=== PATIENT | male | born 1950 | race Caucasian/White ===

== ENCOUNTER 2019-11-01 18:49 | Inpatient (IN) | payer MEDICARE, SELFPAY ==
[2019-11-01 18:56] VITALS: BP 151/89; PULSE 88; RESP 19; TEMP 36.3; O2SAT 95; BMI 24.3
--- NOTE | 2019-11-01 18:57 | ED_ITS ---
Entered by Gisele Munson, acting as scribe for KristenRamona Ab HPI - Altered Mental Status General: Chief Complaint: Altered Mental Status Stated Complaint: AMS, N/V, FACIAL DROOP Time Seen by Provider: 11/01/19 18:56 Source: patient, EMS and RN notes reviewed Mode of arrival: EMS Limitations: altered mental status History of Present Illness: HPI narrative: 69 yo male presents to ED with an altered mental status. 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 The spouse had checked on the patient 2 days ago and had to help him up at that time. She reported the patient had been vomiting the last 2 days. The patient states he has pain in upper back. He denies abdominal pain or other pain at this time. He said nothing alleviates nor worsens the pain. The patient states his mouth is extremely dry. MD complaint: altered mental status Onset (ago): day(s) (2) Timing confirmed by: spouse Severity: moderate Consistency of symptoms: Constant Context: unknown Associated symptoms: Reports other (vomiting) Treatments prior to arrival: oxygen Review of Systems General: Reports: other (negative unless marked) Const: Denies: fever, chills, body aches, fatigue, malaise or diaphoresis Eyes: Denies: change in vision or blurry vision ENMT: Denies: throat pain, painful swallowing, hoarseness, ear pain, ear discharge, Change in hearing or nasal discharge Card: Denies: chest pain, palpitations, irregular heart rhythm, syncope, pre- syncope, shortness of breath on exertion or shortness of breath when lying down Resp: Denies: non-productive cough, wheezing, coughing up blood or chest congestion GI: Denies: abdominal pain, vomiting blood, coffee grounds in vomit, diarrhea, constipation, cramping, blood in stool or black tarry stool : Denies: flank pain, difficulty urinating, painful urination, urinary frequency, urinary urgency, decreased urine ouput, urinary incontinence or blood in urine Musc: Denies: neck pain, back pain, extremity pain, extremity swelling, joint pain, joint swelling, joint warmth or joint stiffness Skin/Breast: Denies: rash, skin tenderness or yellow skin Neuro: Denies: headache, numbness in extremities, weakness in extremities, changes in sensation, lack of coordination, difficulty walking, dizziness, vertigo or confusion Endo: Denies: tired all the time, cold intolerance, excessive sweating, flushing or hot flashes Theodore/Lymph: Denies: easy bruising, easy bleeding, petechiae or enlarged lymph nodes All/Imm: Denies: hives, throat swelling, tongue swelling, facial swelling or acute wheezing PFSH ED PFSH: Social History Smoking and tobacco status: former smoker Physical Exam Const: COMMON NORMALS: no apparent distress, no limitations, healthy appearing and well nourished GENERAL APPEARANCE: cooperative, well kempt and well developed ORIENTATION/CONSCIOUSNESS: Yes awake HENMT: COMMON NORMALS: normocephalic, head/scalp atraumatic, hearing grossly normal bilaterally, external ears normal, EAC's normal and external nose normal HEAD & SCALP: normal to inspection, normocephalic and atraumatic FACE & SINUS: normal facial exam and face symmetric NOSE: external nose normal and nares normal EXTERNAL EAR: Yes external ears normal EXTERNAL AUDITORY CANAL: EAC's normal MOUTH: tongue normal Eye: COMMON NORMALS: PERRL, EOMs intact bilaterally, conjunctivae normal and no scleral icterus GENERAL EYE: normal appearance of both eyes and normal light reflex CONJUNCTIVA: Yes conjunctivae normal SCLERA: sclerae normal CORNEA: Yes corneas normal PUPIL: Yes PERRL DIRECT OPHTHALMOSCOPY: Yes normal light reflex Neck/C-Spine: COMMON NORMALS: full ROM, no lymphadenopathy, supple, no meningeal signs and no JVD GENERAL: Yes normal visual inspection and Yes trachea midline CERVICAL SPINE: Yes cervical ROM normal Chest: COMMONS NORMALS: inspection of chest normal and palpation of chest normal Resp: COMMON NORMALS: no retractions EFFORT & INSPECTION: Yes able to speak in complete sentences AUSCULTATION: rhonchi throughout and wheezes throughout Cardio: COMMON NORMALS: no JVD, regular rate, regular rhythm, S1 normal heart sound, S2 normal heart sound, no gallops, no clicks, no murmurs and no rub JUGULAR VENOUS DISTENTION: no JVD RATE: regular rate RHYTHM: regular rhythm HEART SOUNDS: S1 normal and S2 normal GI: COMMON NORMALS: soft to palpation, non-tender, no hepatosplenomegaly and no masses INSPECTION: Yes normal to inspection PALPATION: Yes soft and Yes no hepatosplenomegaly : COMMON NORMALS: Yes no CVA tenderness BLADDER/KIDNEY EXAM: Yes no CVA tenderness Back/Pelvis: COMMON NORMALS: no CVA tenderness, thoracic and lumbar spine normal to inspection, no thoracic nor lumbar tenderness and thoraco-lumbar ROM normal Extremity: COMMON NORMALS: normal to inspection, full ROM, normal capillary refill, no joint enlargement, no clubbing, cyanosis or edema and no calf tenderness Neuro: COMMON NORMALS: CN's II-XII intact bilaterally, moves all extremities, no focal motor deficits and no sensory deficits noted MENINGEAL SIGNS: Yes no meningeal signs Psych: COMMON NORMALS: mental status grossly normal, thought process normal, cooperative, affect normal, speech normal and activity/motor behavior normal APPEARANCE: Yes well kempt SPEECH: Yes normal speech THOUGHT PROCESS: normal thought process Skin: COMMON NORMALS: no rashes or lesions noted, skin turgor normal, no jaundice, no petechiae and no mottling GENERAL SKIN EXAM: no rashes or lesions noted and turgor normal Course Vital Signs: Vital signs: Vital Signs Temperature 97.4 F L 11/01/19 18:56 Pulse Rate 88 11/01/19 18:56 Respiratory Rate 19 H 11/01/19 18:56 Blood Pressure 151/89 11/01/19 18:56 Pulse Oximetry 95 11/01/19 18:56 MDM - Altered Mental Status MDM Narrative: Medical decision making narrative: The case was reviewed with Dr. Krishna. She agrees admit the patient for further monitoring for altered mental status and dehydration. Lab Data: Attestation: I reviewed the patient's lab results. Labs: Lab Results 11/01/19 11/01/19 11/01/19 Range/Units 18:33 18:33 18:33 WBC 9.9 (4.0-10.0) 10^3/ uL RBC 4.15 (4.1-5.3) 10^6/u L Hgb 12.6 (11.7-16.6) g/dL Hct 38.9 L (42.0-52.0) % MCV 93.7 (80-94) fL MCH 30.4 (28.0-34.0) pg MCHC 32.4 (30.0-36.0) g/dL RDW 12.9 (12.1-15.1) % Plt Count 287 (130-400) 10^3/c mm MPV 11.5 H (7.4-10.4) fL Neut % (Auto) 64.3 % Lymph % (Auto) 21.2 % [place] % (Auto) 11.6 % Eos % (Auto) 2.3 % Baso % (Auto) 0.2 % Neut # (Auto) 6.4 (1.8-7.7) 10^3/u L Lymph # (Auto) 2.1 (0.8-4.8) 10^3/u L [place] # (Auto) 1.2 H (0.2-0.9) 10^3/u L Eos # (Auto) 0.2 (0.0-0.8) 10^3/u L Baso # (Auto) 0.0 (0.0-0.1) 10^3/u L Nucleated RBC % (a uto) 0 % Nucleated RBCs # 0.0 /100WBC PT (10.5-13.3) SECO NDS INR (0.8-1.2) Specimen Type Sample Site ABG pH (7.35-7.45) ABG pCO2 (35-45) mmHg ABG pO2 (80.0-100.0) mmH g ABG HCO3 (22-26) mmol/L ABG Base Excess (-2.0-2.0) mmol/ L Emerson Test Hematocrit (42-52) % O2 Delivery Device Concaver ID Sodium 132 L (136-145) mmol/L Potassium 3.9 (3.5-5.1) mmol/L Chloride 92 L (98-107) mmol/L Carbon Dioxide 25 (22-29) mmol/L Anion Gap 18.9 (5-19) BUN 54 H (8-23) mg/dL Creatinine 1.8 H (0.7-1.2) mg/dL GFR Calculation 37.7 L (90-130) mL/min Glucose 285 H (65-115) mg/dL Calculated Osmolal ity 283 L (285-295) mOsm/k g Lactic Acid (0.5-2.2) mmol/L Calcium 10.5 (8.5-10.5) mg/dL Total Bilirubin 0.6 (0.15-1.2) mg/dL AST 45 H (0-40) U/L ALT 24 (0-41) U/L Alkaline Phosphata se 58 (40-130) IU/L Ammonia 19 (16-60) umol/L Troponin T Baselin e (0-15) ng/mL Troponin T 120 Min kaw (0-15) ng/mL Delta Troponin T (0-10) ABS# NT-Pro-B Natriuret Pep 245 H (0-125) pg/mL Total Protein 7.3 (6.6-8.7) g/dL Albumin 4.4 (3.5-5.2) g/dL Globulin 2.9 (1.3-4.6) g/dL Lipase 75 H (13-60) U/L Urine Color (Yellow) Urine Appearance (CLEAR) Urine pH (5-7) Ur Specific Gravit y (1.005-1.030) Urine Protein (Negative) Urine Glucose (UA) (Normal) Urine Ketones (Negative) Urine Blood (Negative) Urine Nitrate (Negative) Urine Bilirubin (NEGATIVE) Urine Urobilinogen (Negative) mg/dL Ur Leukocyte Janey ase (Negative) Urine RBC (0-2) /hpf Urine WBC (0-5) /hpf Ur Squamous Epith Cells (0-5) Urine Bacteria (NONE) Hyaline Casts Urine Yeast Urine Opiates Scre en (Negative) ng/mL Ur Barbiturates Sc reen (Negative) ng/mL Ur Phencyclidine S crn (Negative) ng/mL Ur Amphetamines Sc reen (Negative) ng/mL U Benzodiazepines Scrn (Negative) ng/mL Urine Cocaine Scre en (Negative) ng/mL U Marijuana (THC) Screen (Negative) ng/mL Ethyl Alcohol < 10 (0-10) mg/dL Influenza Type A A g (Negative) POC Influenza B Ag (Negative) 11/01/19 11/01/19 11/01/19 Range/Units 18:33 19:10 19:25 WBC (4.0-10.0) 10^3/ uL RBC (4.1-5.3) 10^6/u L Hgb (11.7-16.6) g/dL Hct (42.0-52.0) % MCV (80-94) fL MCH (28.0-34.0) pg MCHC (30.0-36.0) g/dL RDW (12.1-15.1) % Plt Count (130-400) 10^3/c mm MPV (7.4-10.4) fL Neut % (Auto) % Lymph % (Auto) % [place] % (Auto) % Eos % (Auto) % Baso % (Auto) % Neut # (Auto) (1.8-7.7) 10^3/u L Lymph # (Auto) (0.8-4.8) 10^3/u L [place] # (Auto) (0.2-0.9) 10^3/u L Eos # (Auto) (0.0-0.8) 10^3/u L Baso # (Auto) (0.0-0.1) 10^3/u L Nucleated RBC % (a uto) % Nucleated RBCs # /100WBC PT 13.90 H (10.5-13.3) SECO NDS INR 1.04 (0.8-1.2) Specimen Type Arterial Sample Site Radial, right ABG pH 7.37 (7.35-7.45) ABG pCO2 40.1 (35-45) mmHg ABG pO2 55.6 L (80.0-100.0) mmH g ABG HCO3 23.4 (22-26) mmol/L ABG Base Excess -1.7 (-2.0-2.0) mmol/ L Emerson Test Pos Hematocrit 39.4 L (42-52) % O2 Delivery Device Room air Concaver ID [email or web address] Sodium (136-145) mmol/L Potassium (3.5-5.1) mmol/L Chloride (98-107) mmol/L Carbon Dioxide (22-29) mmol/L Anion Gap (5-19) BUN (8-23) mg/dL Creatinine (0.7-1.2) mg/dL GFR Calculation (90-130) mL/min Glucose (65-115) mg/dL Calculated Osmolal ity (285-295) mOsm/k g Lactic Acid (0.5-2.2) mmol/L Calcium (8.5-10.5) mg/dL Total Bilirubin (0.15-1.2) mg/dL AST (0-40) U/L ALT (0-41) U/L Alkaline Phosphata se (40-130) IU/L Ammonia (16-60) umol/L Troponin T Baselin e (0-15) ng/mL Troponin T 120 Min kaw (0-15) ng/mL Delta Troponin T (0-10) ABS# NT-Pro-B Natriuret Pep (0-125) pg/mL Total Protein (6.6-8.7) g/dL Albumin (3.5-5.2) g/dL Globulin (1.3-4.6) g/dL Lipase (13-60) U/L Urine Color (Yellow) Urine Appearance (CLEAR) Urine pH (5-7) Ur Specific Gravit y (1.005-1.030) Urine Protein (Negative) Urine Glucose (UA) (Normal) Urine Ketones (Negative) Urine Blood (Negative) Urine Nitrate (Negative) Urine Bilirubin (NEGATIVE) Urine Urobilinogen (Negative) mg/dL Ur Leukocyte Janey ase (Negative) Urine RBC (0-2) /hpf Urine WBC (0-5) /hpf Ur Squamous Epith Cells (0-5) Urine Bacteria (NONE) Hyaline Casts Urine Yeast Urine Opiates Scre en (Negative) ng/mL Ur Barbiturates Sc reen (Negative) ng/mL Ur Phencyclidine S crn (Negative) ng/mL Ur Amphetamines Sc reen (Negative) ng/mL U Benzodiazepines Scrn (Negative) ng/mL Urine Cocaine Scre en (Negative) ng/mL U Marijuana (THC) Screen (Negative) ng/mL Ethyl Alcohol (0-10) mg/dL Influenza Type A A g Negative (Negative) POC Influenza B Ag Negative (Negative) 11/01/19 11/01/19 11/01/19 Range/Units 19:37 20:45 20:50 WBC (4.0-10.0) 10^3/ uL RBC (4.1-5.3) 10^6/u L Hgb (11.7-16.6) g/dL Hct (42.0-52.0) % MCV (80-94) fL MCH (28.0-34.0) pg MCHC (30.0-36.0) g/dL RDW (12.1-15.1) % Plt Count (130-400) 10^3/c mm MPV (7.4-10.4) fL Neut % (Auto) % Lymph % (Auto) % [place] % (Auto) % Eos % (Auto) % Baso % (Auto) % Neut # (Auto) (1.8-7.7) 10^3/u L Lymph # (Auto) (0.8-4.8) 10^3/u L [place] # (Auto) (0.2-0.9) 10^3/u L Eos # (Auto) (0.0-0.8) 10^3/u L Baso # (Auto) (0.0-0.1) 10^3/u L Nucleated RBC % (a uto) % Nucleated RBCs # /100WBC PT (10.5-13.3) SECO NDS INR (0.8-1.2) Specimen Type Sample Site ABG pH (7.35-7.45) ABG pCO2 (35-45) mmHg ABG pO2 (80.0-100.0) mmH g ABG HCO3 (22-26) mmol/L ABG Base Excess (-2.0-2.0) mmol/ L Emerson Test Hematocrit (42-52) % O2 Delivery Device Concaver ID Sodium (136-145) mmol/L Potassium (3.5-5.1) mmol/L Chloride (98-107) mmol/L Carbon Dioxide (22-29) mmol/L Anion Gap (5-19) BUN (8-23) mg/dL Creatinine (0.7-1.2) mg/dL GFR Calculation (90-130) mL/min Glucose (65-115) mg/dL Calculated Osmolal ity (285-295) mOsm/k g Lactic Acid (0.5-2.2) mmol/L Calcium (8.5-10.5) mg/dL Total Bilirubin (0.15-1.2) mg/dL AST (0-40) U/L ALT (0-41) U/L Alkaline Phosphata se (40-130) IU/L Ammonia (16-60) umol/L Troponin T Baselin e 57 H (0-15) ng/mL Troponin T 120 Min kaw 58.42 H (0-15) ng/mL Delta Troponin T 1.42 (0-10) ABS# NT-Pro-B Natriuret Pep (0-125) pg/mL Total Protein (6.6-8.7) g/dL Albumin (3.5-5.2) g/dL Globulin (1.3-4.6) g/dL Lipase (13-60) U/L Urine Color Yellow (Yellow) Urine Appearance Clear (CLEAR) Urine pH 5 (5-7) Ur Specific Gravit y 1.015 (1.005-1.030) Urine Protein Neg (Negative) Urine Glucose (UA) 4+ H (Normal) Urine Ketones Negative (Negative) Urine Blood Trace H (Negative) Urine Nitrate Negative (Negative) Urine Bilirubin Neg (NEGATIVE) Urine Urobilinogen Norm (Negative) mg/dL Ur Leukocyte Janey ase Negative (Negative) Urine RBC 0-4 H (0-2) /hpf Urine WBC None (0-5) /hpf Ur Squamous Epith Cells 0-4 H (0-5) Urine Bacteria Trace (NONE) Hyaline Casts 10-15 H Urine Yeast 1+ H Urine Opiates Scre en (Negative) ng/mL Ur Barbiturates Sc reen (Negative) ng/mL Ur Phencyclidine S crn (Negative) ng/mL Ur Amphetamines Sc reen (Negative) ng/mL U Benzodiazepines Scrn (Negative) ng/mL Urine Cocaine Scre en (Negative) ng/mL U Marijuana (THC) Screen (Negative) ng/mL Ethyl Alcohol (0-10) mg/dL Influenza Type A A g (Negative) POC Influenza B Ag (Negative) 11/01/19 11/01/19 Range/Units 20:50 21:20 WBC (4.0-10.0) 10^3/ uL RBC (4.1-5.3) 10^6/u L Hgb (11.7-16.6) g/dL Hct (42.0-52.0) % MCV (80-94) fL MCH (28.0-34.0) pg MCHC (30.0-36.0) g/dL RDW (12.1-15.1) % Plt Count (130-400) 10^3/c mm MPV (7.4-10.4) fL Neut % (Auto) % Lymph % (Auto) % [place] % (Auto) % Eos % (Auto) % Baso % (Auto) % Neut # (Auto) (1.8-7.7) 10^3/u L Lymph # (Auto) (0.8-4.8) 10^3/u L [place] # (Auto) (0.2-0.9) 10^3/u L Eos # (Auto) (0.0-0.8) 10^3/u L Baso # (Auto) (0.0-0.1) 10^3/u L Nucleated RBC % (a uto) % Nucleated RBCs # /100WBC PT (10.5-13.3) SECO NDS INR (0.8-1.2) Specimen Type Sample Site ABG pH (7.35-7.45) ABG pCO2 (35-45) mmHg ABG pO2 (80.0-100.0) mmH g ABG HCO3 (22-26) mmol/L ABG Base Excess (-2.0-2.0) mmol/ L Emerson Test Hematocrit (42-52) % O2 Delivery Device Concaver ID Sodium (136-145) mmol/L Potassium (3.5-5.1) mmol/L Chloride (98-107) mmol/L Carbon Dioxide (22-29) mmol/L Anion Gap (5-19) BUN (8-23) mg/dL Creatinine (0.7-1.2) mg/dL GFR Calculation (90-130) mL/min Glucose (65-115) mg/dL Calculated Osmolal ity (285-295) mOsm/k g Lactic Acid 1.2 (0.5-2.2) mmol/L Calcium (8.5-10.5) mg/dL Total Bilirubin (0.15-1.2) mg/dL AST (0-40) U/L ALT (0-41) U/L Alkaline Phosphata se (40-130) IU/L Ammonia (16-60) umol/L Troponin T Baselin e (0-15) ng/mL Troponin T 120 Min kaw (0-15) ng/mL Delta Troponin T (0-10) ABS# NT-Pro-B Natriuret Pep (0-125) pg/mL Total Protein (6.6-8.7) g/dL Albumin (3.5-5.2) g/dL Globulin (1.3-4.6) g/dL Lipase (13-60) U/L Urine Color (Yellow) Urine Appearance (CLEAR) Urine pH (5-7) Ur Specific Gravit y (1.005-1.030) Urine Protein (Negative) Urine Glucose (UA) (Normal) Urine Ketones (Negative) Urine Blood (Negative) Urine Nitrate (Negative) Urine Bilirubin (NEGATIVE) Urine Urobilinogen (Negative) mg/dL Ur Leukocyte Janey ase (Negative) Urine RBC (0-2) /hpf Urine WBC (0-5) /hpf Ur Squamous Epith Cells (0-5) Urine Bacteria (NONE) Hyaline Casts Urine Yeast Urine Opiates Scre en Positive H (Negative) ng/mL Ur Barbiturates Sc reen Negative (Negative) ng/mL Ur Phencyclidine S crn Negative (Negative) ng/mL Ur Amphetamines Sc reen Negative (Negative) ng/mL U Benzodiazepines Scrn Negative (Negative) ng/mL Urine Cocaine Scre en Negative (Negative) ng/mL U Marijuana (THC) Screen Negative (Negative) ng/mL Ethyl Alcohol (0-10) mg/dL Influenza Type A A g (Negative) POC Influenza B Ag (Negative) Imaging Data^: CXR: Radiologist's impression: [place] [address] XRay Report Signed Patient: Eze Kessler #: [id number] : 1Acct#:[id number] Age/Sex: 69 / MADM Date: 11/01/19 Loc: [facility]/Bed: Attending Dr: Ordering Provider/Ordering MD: Ramona Peterson DO Date of Service: 11/01/19 Procedure(s): XR chest 1V portable [id number] Accession Number(s): [id number] Report Number: [id number] PROCEDURE INFORMATION: Exam: XR Chest, 1 View Exam date and time: 11/01/2019 7:28 PM Age: 69 years old Clinical indication: Cough TECHNIQUE: Imaging protocol: XR of the chest Views: 1 view. COMPARISON: No relevant prior studies available. FINDINGS: Lungs: Unremarkable. No consolidation. Pleural space: There are small bilateral pleural effusions. No pneumothorax. Heart/Mediastinum: Unremarkable. No cardiomegaly. Bones/joints: There is postsurgical change in the lower cervical spine. XR/XR chest 1V portable [id number] IMPRESSION: There are small bilateral pleural effusions. Dictated By:Cinthya Gonzalez MD Signed By:Cinthya Gonzalez MDSigned Date/Time:11/01/19 CT Head: Radiologist's impression: [address] [address] [address] Scan Report Signed Patient: Eze Kessler #: [id number] : 1Acct#:[id number] Age/Sex: 69 / MADM Date: 11/01/19 Loc: [facility]/Bed: Attending Dr: Ordering Provider/Ordering MD: Ramona Peterson DO Date of Service: 11/01/19 Procedure(s): CT head wo con* [id number] Accession Number(s): [id number] Report Number: [id number] PROCEDURE INFORMATION: Exam: CT Head Without Contrast Exam date and time: 11/01/2019 7:13 PM Age: 69 years old Clinical indication: Pain; Altered mental status/memory loss; Headache; Additional info: Eric/ams TECHNIQUE: Imaging protocol: Computed tomography of the head without contrast. Total DLP: 637.54 mGy-cm Radiation optimization: All CT scans at this facility use at least one of these dose optimization techniques: automated exposure control; mA and/or kV adjustment per patient size (includes targeted exams where dose is matched to clinical indication); or iterative reconstruction. COMPARISON: No relevant prior studies available. FINDINGS: Brain: Moderate white matter disease and volume loss are identified. There is no acute infarct or edema. No hemorrhage. Ventricles: Normal. No ventriculomegaly. Bones/joints: Unremarkable. No acute fracture. Sinuses: Visualized sinuses are unremarkable. No fluid levels. Mastoid air cells: Visualized mastoid air cells are well aerated. Soft tissues: Unremarkable. Other findings: This study is compromised by patient motion. CT/CT head wo con* [id number] IMPRESSION: There are no acute concerning abnormalities. Radiation Dose CTDIVOL = (mGy): DLP = 637.54 (mGy-cm) Dictated By:Cinthya Gonzalez MD Signed By:Cinthya Gonzalezigned Date/Time:11/01/19 Discharge Plan Discharge Patient Disposition: Admitted As Inpatient Clinical Impression: Altered mental status Condition: Stable Prescriptions: No Action metformin 500 mg Tablet 1,000 mg PO BID RF: 0 pravastatin 40 mg Tablet 80 mg PO BEDTIME RF: 0 glipizide 10 mg Tablet Extended Release 24hr 10 mg PO BID RF: 0 gabapentin 400 mg Capsule 400 mg PO TID RF: 0 [place] 10-325 mg Tablet See Rx Instructions .ROUTE .COMPLEX RF: 0 quinapril 40 mg Tablet 40 mg PO DAILY RF: 0 baclofen 10 mg Tablet 20 mg PO TID PRN (Reason: Pain) RF: 0 hydrochlorothiazide 25 mg Tablet 25 mg PO DAILY RF: 0 labetalol 300 mg Tablet 300 mg PO BID RF: 0 Januvia 100 mg Tablet 50 mg PO DAILY RF: 0 Prosvent Ultra Blend 1 tab PO BID RF: 0 Referrals: Kyleigh Barrera MD [Primary Care Provider] - Gómez Velasco MD [Family Provider] - Coding Level of Care Code ED Transitions Manager Rn for Chg Fwd Exam Comprehensive The documentation recorded by the Jeimy da silva Valerie R, accurately reflects the service I personally performed and the decisions made by Kristen ghotra Eli N Nov 01, 2019 18:49
[2019-11-01 19:15] VITALS: PULSE 90; RESP 18; O2SAT 93
[2019-11-01] MEDS: ipratropium-albuterol 3 mL Neb 9 ML INHALATION (19:15)
[2019-11-01] MEDS: sodium chloride 0.9% 1,000 ML 100 ML IV (19:21)
[2019-11-01 19:22] LABS: Basophils % 0.2 %; Eosinophils # 0.2 10^3/uL (0.0-0.8); Eosinophils % 2.3 %; Hematocrit 38.9 % (42.0-52.0); Hemoglobin 12.6 g/dL (11.7-16.6); Lymphocytes # 2.1 10^3/uL (0.8-4.8); Lymphocytes % 21.2 %; Mean Corpuscular HGB Conc 32.4 g/dL (30.0-36.0); Mean Corpuscular Hemoglobin 30.4 pg (28.0-34.0); Mean Corpuscular Volume 93.7 fL (80-94); Mean Platelet Volume 11.5 fL (7.4-10.4); Monocytes # 1.2 10^3/uL (0.2-0.9); Monocytes % 11.6 %; Neutrophils # 6.4 10^3/uL (1.8-7.7); Neutrophils % 64.3 %; Nucleated Red Blood Cells % 0 %; Platelet Count 287 10^3/cmm (130-400); Red Blood Count 4.15 10^6/uL (4.1-5.3); Red Cell Distribution Width 12.9 % (12.1-15.1); White Blood Count 9.9 10^3/uL (4.0-10.0)
[2019-11-01 19:30] VITALS: PULSE 94; RESP 20; O2SAT 94
[2019-11-01 19:40] LABS: INR 1.04 (0.8-1.2)
[2019-11-01 19:48] LABS: Influenza A by IFA Negative (Negative); Influenza B by IFA Negative (Negative)
[2019-11-01 19:56] LABS: Ammonia 19 umol/L (16-60)
[2019-11-01 20:07] LABS: Alanine Aminotransferase 24 U/L (0-41); Albumin Level 4.4 g/dL (3.5-5.2); Alkaline Phosphatase 58 IU/L (40-130); Anion Gap 18.9 (5-19); Aspartate Amino Transferase 45 U/L (0-40); Blood Urea Nitrogen 54 mg/dL (8-23); Calcium 10.5 mg/dL (8.5-10.5); Carbon Dioxide 25 mmol/L (22-29); Chloride 92 mmol/L (98-107); Creatinine Clr Calc Pharmacy 40.1984; Globulin 2.9 g/dL (1.3-4.6); Glomerular Filtration Rate 37.7 mL/min (90-130); Glucose 285 mg/dL (65-115); Lipase 75 U/L (13-60); NT Pro B Type Natriuretic Pept 245 pg/mL (0-125); Osmolality Calculated 283 mOsm/kg (285-295); Potassium 3.9 mmol/L (3.5-5.1); Sodium 132 mmol/L (136-145); Total Bilirubin 0.6 mg/dL (0.15-1.2); Total Protein 7.3 g/dL (6.6-8.7)
[2019-11-01 20:18] LABS: Troponin(5th) Baseline 57 ng/mL (0-15)
[2019-11-01 20:40] LABS: Alcohol Level < 10 mg/dL (0-10)
--- NOTE | 2019-11-01 21:00 | ECG_ITS ---
Measurements Intervals [place] Rate: 86 P: 52 MO: 140 QRS: -52 QRSD: 105 T: 78 QT: 371 QTc: 444 SINUS RHYTHM POSSIBLE LEFT ATRIAL ENLARGEMENT [-0.1mV P WAVE IN V1/V2] LEFT ANTERIOR FASCICULAR BLOCK [QRS AXIS <= -45, QR IN I, RS IN II] SEPTAL MYOCARDIAL INFARCTION , OF INDETERMINATE AGE [40+ ms Q WAVE IN V1/V2] No previous ECG available for comparison Electronically Signed On 11-02-2019 18:07:39 CDT by Desire Manuel M.D. [email or web address]
[2019-11-01 21:01] LABS: ABG PCO2 40.1 mmHg (35-45); ABG PH Result 7.37 (7.35-7.45); Arterial Blood Gas Hematocrit 39.4 % (42-52); Base Excess ABG -1.7 mmol/L (-2.0-2.0); Blood Gas Allen Test Pos; Blood Gas Sample Site Radial, right; Blood Gas Sample Type Arterial; HCO3 ABG 23.4 mmol/L (22-26); Oxygen Device ROOM AIR; PO2 ABG 55.6 mmHg (80.0-100.0)
[2019-11-01 21:12] LABS: Troponin 5 2HR 58.42 ng/mL (0-15); Troponin 5 2HR Delta 1.42 ABS# (0-10)
[2019-11-01 21:29] LABS: Amphetamines Screen Urine Negative (Negative); Barbiturates Screen Urine Negative (Negative); Benzodiazepines Screen Urine Negative (Negative); Cocaine Screen Urine Negative (Negative); Opiate Screen Urine Positive (Negative); PCP Screen Urine Negative (Negative); THC Screen Urine Negative (Negative)
[2019-11-01 21:37] LABS: Blood Urine Trace (Negative); Glucose Urine UA 4+ (Normal); Ketones Urine Negative (Negative); Nitrate Urine Negative (Negative); Protein Urine Neg (Negative); Specific Gravity, Urine 1.015 (1.005-1.030); Urine Appearance Clear (CLEAR); Urine Color Yellow (Yellow); pH Urine 5 (5-7)
[2019-11-01 21:38] LABS: Bilirubin Urine Neg (NEGATIVE); Leukocyte Esterase Urine Negative (Negative); Urobilinogen Urine Norm (Negative)
[2019-11-01 21:41] LABS: Add Urine Culture? Yes; Bacteria Urine TRACE; RBC Urine 0-4 /hpf (0-2); Squamous Epithelial Cell Urine 0-4 (0-5)
[2019-11-01 21:43] LABS: Lactic Sepsis W/Reflex 1.2 mmol/L (0.5-2.2)
[2019-11-01 23:15] VITALS: BP 175/91; PULSE 91; RESP 20; O2SAT 98
--- NOTE | 2019-11-01 23:20 | P.HP_ITS ---
Providers/Chief Complaint Admitting Physician: Silvia Adames MD Primary Care Provider: Kyleigh Barrera MD Chief Complaint: AMS, Recurrent Falls History of Present Illness Eze Kessler is a 69 year old male who presented to the emergency room via EMS. History is obtained from him and available ER records. He is not a very good historian. Patient's , from whom he is currently , called for the ambulance. She left him about 2 weeks ago because of what was described as combative behavior towards her related to the patient having dementia. He has been living alone since that time though she has gone to check on him periodically. At that time he had fallen down and she had to help him get back up. He has evidently been vomiting for a couple of days. Unclear if he has had any diarrhea. No report of any fevers though again he is not a reliable histor sheila. He states that his legs just keep going out on him. It is both legs. He has evidence of multiple falls with abrasions to both legs, arms as well as his head. Denies focal numbness or weakness otherwise. No reported speech problems. Does indicate occasional difficulty swallowing. No vision changes. Denies drinking any alcohol in more than 4 years. He does take pain medication and reports that something he has been prescribed recently has not been helping any. He cannot tell me who prescribes the medications but does know that his primary care provider is Dr. Barrera. He describes being on a pain pill, a muscle relaxer and gabapentin. He cannot tell me if he has continued to take his medications since his left or not. From his ramblings it sounds like he may have chosen to quit taking a pill because he did not think it was working but it is really hard to figure out. He denies any audio or visual hallucinations. He does know that what the year is, that he is at the hospital, that he is here because he has been falling down a lot and who the president is. At the same time he does not seem to know what to do with the remote control or how to use a urinal. Work-up in the emergency room revealed evidence of dehydration. He had an elevated BUN and creatinine. It was clinically apparent that he was not doing well taking care of himself. He is being admitted for further evaluation and treatment. Medication bottles were brought in with him. Patient's does not wish to have anything to do with him any further from what was passed on to me. Patient himself is complaining of pain but will not localize it. History below was obtained from patient but is not considered fully reliable. Review of Systems Const: Reports: body aches; Denies: fever, chills, change in appetite or change in sleep pattern Eyes: Denies: change in vision or blurry vision ENMT: Denies: throat pain or nasal discharge Card: Denies: chest pain, palpitations, edema, lightheadedness or syncope Resp: Denies: shortness of breath or productive cough GI: Reports: nausea, vomiting and difficulty swallowing; Denies: abdominal pain, vomiting blood, heartburn/indigestion, diarrhea, constipation, blood in stool or black tarry stool : Denies: difficulty urinating, painful urination or blood in urine Musc: Reports: neck pain, back pain, extremity pain, joint pain, muscle cramps and muscle weakness; Denies: redness or joint warmth Skin/Breast: Reports: sores (Particularly on legs from recurrent falls) Neuro: Reports: headache, weakness in extremities, difficulty walking, frequent falls, confusion (Patient denies but was reported by ) and behavioral changes (Patient denies but was reported by ); Denies: numbness in extremities, dizziness, slurred speech or involuntary movements Psych: Denies: depression, visual hallucinations or auditory hallucinations Endo: Denies: excessive urination or excessive thirst Theodore/Lymph: Denies: easy bruising or easy bleeding Medications/Allergies Home Medications Medication Instructions Recorded Confirmed Last Taken Type Prosvent Ultra Blend 1 tab PO BID 11/01/19 11/01/19 Unknown History baclofen 20 mg PO TID PRN 11/01/19 11/01/19 Unknown History gabapentin 400 mg PO TID 11/01/19 11/01/19 Unknown History glipizide 10 mg PO BID 11/01/19 11/01/19 Unknown History hydrochlorothiazide 25 mg PO DAILY 11/01/19 11/01/19 Unknown History hydrocodone-acetaminophen [Hasty] See Rx Instructions .ROUTE .COMPLEX 11/01/19 11/01/19 Unknown History labetalol 300 mg PO BID 11/01/19 11/01/19 Unknown History metformin 1,000 mg PO BID 11/01/19 11/01/19 Unknown History pravastatin 80 mg PO BEDTIME 11/01/19 11/01/19 Unknown History quinapril 40 mg PO DAILY 11/01/19 11/01/19 Unknown History sitagliptin [Januvia] 50 mg PO DAILY 11/01/19 11/01/19 Unknown History Allergies Allergy/AdvReac Type Severity Reaction Status Date / Time No Known Allergies Allergy Verified 11/01/19 19:03 PFSH Acute PFSH: Medical History (Updated 11/02/19 @ 04:14 by Siliva Adames MD) Chronic pain Baclofen, gabapentin, hydrocodone on 11/02 2019 Diabetes mellitus type 2, noninsulin dependent Chronically on glipizide, metformin and Januvia as of 11/02/2019 Hyperlipidemia Chronically on pravastatin as of 11/02/2019 Hypertension Chronically on hydrochlorothiazide, labetalol, quinapril as of 11/02/2019 Surgical History (Updated 11/02/19 @ 04:10 by Silvia Adames MD) No significant past surgical history None reported by patient on 11/02/2019 Family History (Updated 11/02/19 @ 04:11 by Silvia Adames MD) Unknown No significant family history none reported by patient Social History (Updated 11/02/19 @ 04:12 by Silvia Adames MD) Smoking and tobacco status: former smoker Alcohol intake: former Former alcohol use details: no alcohol in 4-5 years, unable to quantify prior use History of recent travel: No Vitals/I&O/Wt Last Vital Signs Temp 97.4 F L 11/01/19 18:56 Pulse 94 11/01/19 19:30 Resp 20 H 11/01/19 19:30 BP 151/89 11/01/19 18:56 Pulse Ox 94 11/01/19 19:30 Weight last 48 hrs Weight 74.843 kg Physical Exam Const: COMMON NORMALS: oriented x3 and alert; negative for healthy appearing GENERAL APPEARANCE: anxious, disheveled and frail appearing; no odor of alcohol detected HENMT: COMMON NORMALS: oral mucous membranes not moist HEAD & SCALP: not atraumatic (frontoparietal soft tissue swelling centrally about 5-6cm diameter, with thin scab. There is another area of loss of superficial layer of skin on the right frontal parietal area. No ecchymoses is noted. Area mildly tender.) FACE & SINUS: facial erythema and other (Patient may have a slight right- sided facial droop, not fully cooperative with evaluation of such) NOSE: external nose normal EXTERNAL EAR: Yes external ears normal MOUTH: tongue normal and other (Dry lips); no dysphonia and no drooling TEETH & GINGIVA: Yes poor dentition Eye: COMMON NORMALS: PERRL, EOMs intact bilaterally (Grossly), no scleral icterus and normal visual flanagan by confrontation EYELID: eyelids normal (Right upper eyelid looks a little edematous) CONJUNCTIVA: Yes conjunctiva abnormal positive bilateral conjunctival injection diffuse Neck/C-Spine: COMMON NORMALS: supple and no JVD GENERAL: Yes other (Sunken suprasternal notch) Chest: COMMONS NORMALS: inspection of chest normal and palpation of chest normal Resp: COMMON NORMALS: no use of accessory muscles and clear to auscultation bilaterally EFFORT & INSPECTION: Yes tachypneic Cardio: COMMON NORMALS: no murmurs, no rub and peripheral pulses 2+ throughout RATE: regular rate RHYTHM: regular rhythm GI: AUSCULTATION: Yes normoactive bowel sounds PALPATION: Yes soft, No tender and Yes no hepatosplenomegaly : COMMON NORMALS: Yes no CVA tenderness and Yes external exam normal Back/Pelvis: COMMON NORMALS: no thoracic nor lumbar tenderness GENERAL BACK: Yes tenderness (Patient does have some tenderness in the right scapular area but it is not consistently reproducible.) Extremity: COMMON NORMALS: no calf tenderness and no pedal edema NARRATIVE EXTREMITY EXAM: Both knees are erythematous and slightly warm to touch but there are abrasions bilaterally. Left knee is slightly boggy but not particularly tender at all. Both with good range of motion. Ankles, wrists, elbows and shoulders have normal range of motion. Neuro: COMMON NORMALS: moves all extremities SPEECH: speech normal GAIT: Yes unable to assess gait SENSORY EXAM: Yes extremities bilateral pin-prick: normal and light-touch: normal MOTOR EXAM: strength 5/5 throughout, no tremor noted, no asterixis and no fasciculations PLANTAR REFLEX: downgoing: bilateral OTHER: Patient is not fully cooperative with neurological exam. He can do simple tasks but more complex ones such as [id number] or heel-to- duran confuse him. Trying to evaluate cranial nerves specifically was not successful but grossly no abnormalities were noted beyond possibility of a slight right-sided facial droop. Psych: APPEARANCE: Yes unkempt ATTITUDE: Yes evasive ACTIVITY/MOTOR BEHAVIOR: Yes fidgeting and Yes avoids eye contact SPEECH: Yes pressured (When talking about his ) MOOD & AFFECT: Yes anxious and Yes irritable (Mildly) THOUGHT PROCESS: circumstantial, confused (When trying to answer general questions but able to answer orientation questions correctly with effort) and loose associations THOUGHT CONTENT: No hallucination(s) MEMORY/COGNITION: Yes other (Cognition is inconsistent with patient answering simple questions at times but not able to answer other questions) INSIGHT: limited JUDGEMENT: questionable Skin: NARRATIVE SKIN EXAM: Multiple abrasions on extensor surfaces of both lower extremities and to a lesser degree both upper extremities. He has abrasions to his frontal parietal area as noted above. Face is erythematous. He has a blackened great toenail on the left foot. Data : 11/01/19 18:33 11/01/19 18:33 Other Labs: Laboratory Tests 11/01/19 11/01/19 11/01/19 18:33 18:33 18:33 INR 1.04 ABG pH ABG pCO2 ABG pO2 ABG HCO3 O2 Delivery Device Lactic Acid Calcium 10.5 Total Bilirubin 0.6 AST 45 H ALT 24 Alkaline Phosphatase 58 Ammonia 19 Troponin I 6 Hour Troponin T Baseline Troponin T 120 Minute NT-Pro-B Natriuret Pep 245 H Total Protein 7.3 Albumin 4.4 Lipase 75 H Urine Color Urine Appearance Ur Specific [place] Urine Protein Urine Glucose (UA) Urine Ketones Urine Blood Urine Nitrate Ur Leukocyte Esterase Urine Opiates Screen Ethyl Alcohol < 10 Influenza Type A Ag POC Influenza B Ag 11/01/19 11/01/19 11/01/19 19:10 19:25 19:37 INR ABG pH 7.37 ABG pCO2 40.1 ABG pO2 55.6 L ABG HCO3 23.4 O2 Delivery Device Room air Lactic Acid Calcium Total Bilirubin AST ALT Alkaline Phosphatase Ammonia Troponin I 6 Hour Troponin T Baseline 57 H Troponin T 120 Minute NT-Pro-B Natriuret Pep Total Protein Albumin Lipase Urine Color Urine Appearance Ur Specific [place] Urine Protein Urine Glucose (UA) Urine Ketones Urine Blood Urine Nitrate Ur Leukocyte Esterase Urine Opiates Screen Ethyl Alcohol Influenza Type A Ag Negative POC Influenza B Ag Negative 11/01/19 11/01/19 11/01/19 20:45 20:50 20:50 INR ABG pH ABG pCO2 ABG pO2 ABG HCO3 O2 Delivery Device Lactic Acid Calcium Total Bilirubin AST ALT Alkaline Phosphatase Ammonia Troponin I 6 Hour Troponin T Baseline Troponin T 120 Minute 58.42 H NT-Pro-B Natriuret Pep Total Protein Albumin Lipase Urine Color Yellow Urine Appearance Clear Ur Specific [place] 1.015 Urine Protein Neg Urine Glucose (UA) 4+ H Urine Ketones Negative Urine Blood Trace H Urine Nitrate Negative Ur Leukocyte Esterase Negative Urine Opiates Screen Positive H Ethyl Alcohol Influenza Type A Ag POC Influenza B Ag 11/01/19 11/02/19 21:20 00:50 INR ABG pH ABG pCO2 ABG pO2 ABG HCO3 O2 Delivery Device Lactic Acid 1.2 Calcium Total Bilirubin AST ALT Alkaline Phosphatase Ammonia Troponin I 6 Hour 48.01 H Troponin T Baseline Troponin T 120 Minute NT-Pro-B Natriuret Pep Total Protein Albumin Lipase Urine Color Urine Appearance Ur Specific [place] Urine Protein Urine Glucose (UA) Urine Ketones Urine Blood Urine Nitrate Ur Leukocyte Esterase Urine Opiates Screen Ethyl Alcohol Influenza Type A Ag POC Influenza B Ag Micro: Microbiology 11/01/19 18:24 Blood Culture - Preliminary Blood SPECIMEN COLLECTED 11/01/19 18:33 Blood Culture - Preliminary Blood SPECIMEN COLLECTED CXR: Radiologist's impression: FINDINGS: Lungs: Unremarkable. No consolidation. Pleural space: There are small bilateral pleural effusions. No pneumothorax. Heart/Mediastinum: Unremarkable. No cardiomegaly. Bones/joints: There is postsurgical change in the lower cervical spine. XR/XR chest 1V portable [id number] IMPRESSION: There are small bilateral pleural effusions. CT Head: Radiologist's impression: FINDINGS: Brain: Moderate white matter disease and volume loss are identified. There is no acute infarct or edema. No hemorrhage. Ventricles: Normal. No ventriculomegaly. Bones/joints: Unremarkable. No acute fracture. Sinuses: Visualized sinuses are unremarkable. No fluid levels. Mastoid air cells: Visualized mastoid air cells are well aerated. Soft tissues: Unremarkable. Other findings: This study is compromised by patient motion. CT/CT head wo con* [id number] IMPRESSION: There are no acute concerning abnormalities. EKG 1: I personally reviewed and interpreted this EKG as follows: My Interpretation: Sinus, nonspecific t wave changes, no st elevation Prior ECG tracings: not available for review A&P Assessment and plan (1) Acute renal failure: Status: Acute Qualifiers: Acute renal failure type: unspecified Qualified Code(s): N17.9 - Acute kidney failure, unspecified Code(s): N17.9 - Acute kidney failure, unspecified (2) Recurrent falls: Status: Acute Code(s): R29.6 - Repeated falls (3) Altered mental status: Status: Acute Qualifiers: Altered mental status type: unspecified Qualified Code(s): R41.82 - Altered mental status, unspecified Code(s): R41.82 - Altered mental status, unspecified (4) Diabetes mellitus type 2, noninsulin dependent: With hyperglycemia presently Status: Acute Code(s): E11.9 - Type 2 diabetes mellitus without complications (5) Chronic pain: Status: Acute Qualifiers: Chronic pain type: chronic pain syndrome Qualified Code(s): G89.4 - Chronic pain syndrome Code(s): G89.29 - Other chronic pain (6) Hypertension: Status: Acute Qualifiers: Hypertension type: essential hypertension Qualified Code(s): I10 - Essential (primary) hypertension Code(s): I10 - Essential (primary) hypertension (7) Hyperlipidemia: Status: Acute Qualifiers: Hyperlipidemia type: unspecified Qualified Code(s): E78.5 - Hyperlipidemia, unspecified Code(s): E78.5 - Hyperlipidemia, unspecified Additional A&P Information From the history provided, patient has had worsening behavior issues and been combative towards his lately. She has left him as of about 2 weeks ago because of what she described to the ED doctor as dementia . Since then he has not been able to care for himself. I am not sure if we are dealing with medication under or overuse but I do think that that is a possibility both from the standpoint of some of the medications he is on such as baclofen and hydrocodone as well as diabetic medications. He is oriented to person, place and to a lesser degree situation, but he does not appear to know how to use a urinal nor remote control for the TV. He does not understand the concept that his cannot be with him right now. I cannot discern if he has a history of alcohol use. He may have some degree of progressing dementia but difficult to know seeing him at one point in time. Delirium is certainly a possibility. He does have acute kidney injury/renal failure as indicated. Vomiting has been reported and may be the cause of this. Specific etiology for the vomiting is not clear to me and has not had any recurrence here that I have seen. Some of his medications, in the setting of acute renal failure could certainly alter his mental status. Lipase is slightly elevated, probably from the reported vomiting. Urine nitrites and leukocyte esterase are negative. Chest x-ray and CT of the head are unremarkable for acute changes though it was noted that he had some chronic decreased white matter and volume loss. I have no previous studies or labs for comparison. Acute cardiovascular event within the differential as is acute cerebrovascular event. Acute infectious etiology seems less likely to me but not out of around the possibility. Presently not certain exactly what is going on nor what his baseline is. Regardless he has clearly struggled to care for himself the last couple of weeks and has what appears to b e acute medical issues we can address. Inpatient admission IV fluids Monitor renal function Check CK level, serial cardiac enzymes, lipids, A1c, TSH, B12 and folate Hold statin therapy, DOM inhibitor, diuretic for the time being Continue labetalol Sliding scale insulin for diabetes Hold metformin and glipizide secondary to renal dysfunction, hold Januvia Resume a lower dose of baclofen and gabapentin as well as hydrocodone, monitoring mental status Serial neuro exams PT and OT and speech evaluation Check carotid ultrasound and echocardiogram Fall precautions One-to-one sitter in this patient with significant recurrent falls lately Case management to help discern social situation and disposition options Patient admits that he probably cannot take care of himself Request medical records from Dr. Holly Blount for DVT prophylaxis Supportive care otherwise Full code Attestations Medical Necessity Statement*: Anticipated stay greater than 2 midnights in a patient with multiple issues as noted above. The actual chronicity of some of these issues is unclear but patient has clear indications that he is struggling to care for himself the last couple of weeks with evidence of multiple falls. Need to evaluate for reversible and/or treatable cause of all of this. Plans are as indicated. 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
[2019-11-02] VITALS (9 sets, daily range): BP systolic 159–182; BP diastolic 70–88; PULSE 77–94; RESP 16–20; TEMP 36.4–37.2; O2SAT 94–100
[2019-11-02] MEDS: HYDROcodone-acetaminophen 10-325 mg Tablet 1 TAB PO ×3 (00:40→21:59)
[2019-11-02] MEDS: enoxaparin 40 mg/0.4 mL Syringe SUBCUT ×2 (00:45→22:02)
[2019-11-02 00:49] LABS: Glucose Point of Care 322 mg/dL (70-110)
[2019-11-02] MEDS: sodium chloride 0.9% 1,000 ML 999 ML IV (00:49)
--- NOTE | 2019-11-02 01:00 | ECG_ITS ---
Measurements Intervals Gladys Rate: 84 P: 52 LA: 144 QRS: -40 QRSD: 106 T: 80 QT: 376 QTc: 445 SINUS RHYTHM MARKED LEFT AXIS DEVIATION [QRS AXIS < -30] NONSPECIFIC T-WAVE ABNORMALITY No previous ECG available for comparison Electronically Signed On 11-02-2019 18:07:27 CDT by Desire Manuel M.D. [email or web address]
[2019-11-02 01:25] LABS: Troponin 5 6HR 48.01 ng/mL (0-15)
[2019-11-02] MEDS: sodium chloride 0.9% 1,000 ML 100 ML IV ×3 (01:53→22:00)
--- NOTE | 2019-11-02 04:54 | USCV_ITS ---
Eze Kessler Age: 69 Gender: M : 1950 Exam Date: 11/02/2019 13:55 Ordering Phys: Silvia Adames MD Technologist: Jen Rdz Exam Location: [facility] – [place] Indication: Recurrent falls Risk Factors: Unknown Previous Vascular Surgery: Unknown Right Brachial BP: / Left Brachial BP: / Right Left Velocity (cm/s) Spectral Plaque Velocity (cm/s) Spectral Plaque Syst/Diast Broadening Syst/Diast Broadening 105.80/18.70 Prox CCA 88.60 / 17.10 86.00/ 13.20 Mid CCA 88.60 / 14.00 66.20/ 17.60 Hetro Distal CCA 58.40 / 12.10 Hetro 79.20/ 16.20 Hetro Prox ICA 71.00 / 18.40 Hetro 88.60/ 23.30 Mid ICA 97.30 / 26.30 91.70/ 23.30 Distal ICA 73.60 / 26.30 152.90 ECA 352.10 Hetro 1.39 ICA/CCA 1.66 Not Vertebral Not Visualized Visualized / cm/s / cm/s Tri Subclavian Bi 118.1 107.8 0 0 FINDINGS Comparison: none available. Mild atherosclerosis at the bifurcations bilaterally without significant stenosis. Neither vertebral artery is identified. Moderate stenosis left subclavian atery. CONCLUSIONS Bilateral ICA stenosis less than 50%. Mild atherosclerosis at the bifurcations. Dr. Roxy Gallo DO (Electronically Signed) Final Date: 02 November 2019 15:23 S
--- NOTE | 2019-11-02 04:54 | USCV_ITS ---
Checo Eze Age: 69 Gender: M : 1950 Exam Date: 11/02/2019 14:19 Ordering Phys: Silvia Adames MD Technologist: Jen Rdz Exam Location: [facility] – [place] Indication: Recurrent falls, bilateral effusion on CXR, Elevated troponin BP: 176 / 79 HR: 92 Rhythm: Sinus Technical Quality: Adequate MEASUREMENTS (Male / Female) Normal Values 2D ECHO LV Diastolic Diameter PLAX 3.9 cm 4.2 - 5.9 / 3.9 - 5.3 cm LV Systolic Diameter PLAX 2.2 cm LV Chamber Size 4.1 cm IVS Diastolic Thickness 1.5 cm 0.6 - 1.0 / 0.6 - 0.9 cm IVS Systolic Thickness 1.9 cm LVPW Diastolic Thickness 1.4 cm 0.6 - 1.0 / 0.6 - 0.9 cm LVPW Systolic Thickness 1.8 cm RV Chamber Size 2.4 cm LVOT Diameter 2.0 cm LV Ejection Fraction 2D Teich 76.3 % LV Ejection Fraction MOD 2C 68.3 % LV Ejection Fraction 2C AL 67.8 % LA Diameter 4.4 cm LA Width 2.8 cm LA Height 4.6 cm RA Width 2.5 cm RA Height 4.2 cm Aorta at Sinotubular Diameter 2.8 cm M-MODE LV Diastolic Diameter MM 5.3 cm 4.2 - 5.9 / 3.9 - 5.3 cm LV Systolic Diameter MM 3.2 cm LV Ejection Fraction MM Teich 70.8 % IVS Diastolic Thickness MM 1.3 cm 0.6 - 1.0 / 0.6 - 0.9 cm IVS Systolic Thickness MM 1.3 cm LVPW Diastolic Thickness MM 1.3 cm 0.6 - 1.0 / 0.6 - 0.9 cm LVPW Systolic Thickness MM 1.7 cm RV Diastolic Diameter MM 1.6 cm Aortic Annulus Diameter 3.6 cm LA Ao Ratio MM 1.2 MV E Point Septal Separation 1.2 cm DOPPLER AV Peak Velocity 151.0 cm/s LVOT Peak Velocity 106.0 cm/s AV Area Cont Eq vti 2.9 cm squared AV Area Cont Eq pk 2.2 cm squared MV Area PHT 3.5 cm squared Mitral E to A Ratio 0.7 MV E' Velocity 8.0 cm/s Mitral E to MV E' Ratio 14.5 Mitral E to LV E' Lateral Ratio 12.0 Mitral E to LV E' Septal Ratio 18.6 TV Peak E Velocity 67.0 cm/s Right Atrial Pressure 3.0 mmHg PV Peak Velocity 98.0 cm/s RV Acceleration Time 0.1 s RV Ejection Time 0.2 s RV AcT/ET 0.5 FINDINGS Left Ventricle Normal left ventricular cavity size. Normal left ventricular systolic function. No regional wall motion abnormalities. Left ventricular ejection fraction is estimated at 65 %. Grade I/IV diastolic dysfunction (abnormal relaxation filling pattern), normal to mildly elevated filling pressures. Right Ventricle The right ventricle is normal in size and function. RVSP could not be calculated due to incomplete tricuspid regurgitation velocity profile. Right Atrium The right atrium is normal in size. Left Atrium The left atrium is normal in size. Mitral Valve Structurally normal mitral valve without significant stenosis or prolapse. There is no mitral regurgitation. Aortic Valve Structurally normal aortic valve without significant sclerosis or stenosis. There is no aortic regurgitation. Tricuspid Valve Structurally normal tricuspid valve without significant stenosis or regurgitation. Pulmonary artery systolic pressure is normal. Pulmonic Valve Structurally normal pulmonic valve without significant stenosis. There is no pulmonic regurgitation. Pericardium Normal pericardium without effusion. Aorta Normal ascending aorta dimension. CONCLUSIONS 1-Normal left ventricular cavity size. Normal left ventricular systolic function. No regional wall motion abnormalities. Left ventricular ejection fraction is estimated at 65 %. Grade I/IV diastolic dysfunction (abnormal relaxation filling pattern), normal to mildly elevated filling pressures. 2-There is no pericardial effusion. 3-No significant valve abnormalities. 4-Right atrial pressure is around 5 mm of mercury. 5-There are no prior echocardiogram studies to compare. Klaudia Vasques MD (Electronically Signed) Final Date: 02 November 2019 20:53 S
[2019-11-02 05:35] LABS: Basophils % 0.3 %; Eosinophils # 0.2 10^3/uL (0.0-0.8); Eosinophils % 2.2 %; Hematocrit 35.9 % (42.0-52.0); Hemoglobin 11.8 g/dL (11.7-16.6); Lymphocytes # 1.7 10^3/uL (0.8-4.8); Lymphocytes % 22.2 %; Mean Corpuscular HGB Conc 32.9 g/dL (30.0-36.0); Mean Corpuscular Hemoglobin 30.9 pg (28.0-34.0); Mean Platelet Volume 11.7 fL (7.4-10.4); Monocytes # 0.7 10^3/uL (0.2-0.9); Monocytes % 8.9 %; Nucleated Red Blood Cells % 0 %; Platelet Count 254 10^3/cmm (130-400); Red Blood Count 3.82 10^6/uL (4.1-5.3); Red Cell Distribution Width 12.8 % (12.1-15.1); White Blood Count 7.6 10^3/uL (4.0-10.0)
[2019-11-02 05:53] LABS: Anion Gap 19.6 (5-19); Blood Urea Nitrogen 33 mg/dL (8-23); Calcium 9.4 mg/dL (8.5-10.5); Carbon Dioxide 23 mmol/L (22-29); Chloride 101 mmol/L (98-107); Glomerular Filtration Rate 60.2 mL/min (90-130); Glucose 218 mg/dL (65-115); Osmolality Calculated 294 mOsm/kg (285-295); Potassium 3.6 mmol/L (3.5-5.1); Sodium 140 mmol/L (136-145)
[2019-11-02 06:01] LABS: Magnesium 2.2 mg/dL (1.7-2.3); Phosphorus 3.7 mg/dL (2.5-4.5)
[2019-11-02 06:10] LABS: Homocysteine 13.89
[2019-11-02 06:20] LABS: Estmated Average Glucose 298
[2019-11-02 06:23] LABS: Glucose Point of Care 239 mg/dL (70-110)
[2019-11-02 06:29] LABS: Chol HDL Ratio 4.38 mg/dL (1.0-5.00); Cholesterol 171 mg/dL (0-200); HDL Cholesterol 39 mg/dL (60-100); LDL Cholesterol Calculated 66 mg/dL (50-129); LDL HDL Ratio 1.69 RATIO (0.00-3.22); Thyroid Stimulating Hormone 0.31 uIU/mL (0.27-4.20); Triglycerides 328 mg/dL (0-150); Vitamin B12 271 pg/mL (232-1245)
[2019-11-02 06:40] LABS: Creatine Phosphokinase 899 U/L (39-308)
[2019-11-02] MEDS: gabapentin 100 mg Capsule 200 MG PO ×3 (08:55→22:02)
[2019-11-02] MEDS: folic acid 1 mg Tablet PO (08:55)
[2019-11-02] MEDS: labetalol 200 mg Tablet PO ×2 (08:55→18:34)
[2019-11-02] MEDS: thiamine 100 mg Tablet PO (08:55)
--- NOTE | 2019-11-02 10:39 | PC.NURSE ---
REPORT GIVEN TO ASHLEE WINKLER, PRIMARY CARE OF PATIENT TURNED OVER AT THIS TIME.
--- NOTE | 2019-11-02 11:10 | PC.CHAP ---
Pastoral Care Encounter/Spiritual Assessment Type of Contact [x] Declined patient access associate visit [] Patient/Family/Request visit [] Outpatient visit [] Follow-up visit [] Physician referral [] Code/Alert [] Routine visit [] Staff referral [] Actively dying [] Patient sleeping [] Family support [] [] Out of room [] Palliative care [] [] Receiving care in room [] Pre-surgical visit [] Trauma [] Long length of stay [] ICU visit [] Other: Relational/Emotional Strength [] Patient feels connected with others/family/visitors/staff [] Distress [] Loneliness/isolation [] Abandonment Spirituality of Patient [] Person of Shaylee [] Attends Baptism of their Shaylee [] Believes in Prayer [] Reads Bible or Anabaptist materials [] There are Spiritual issues to be addressed Manager Photo Interventions [] Prayer [] Active listening [] Non-anxious presence [] Spiritual/emotional support [] Crisis/trauma care [] Spiritual counseling [] Bereavement support [] Provided bereavement packet [] Provided Bible/devotional materials [] Provided toy/stuffed animal, coloring book to patient or family member [] Provided Communion [] Anointing/[place] [] Salvation [] Completed spiritual assessment [] Other: Impact on Illness or Injury [] Angry [] Fearful [] Anxious [] Often cries [] Exhaustion [] Unable to work [] Unable to attend religious [] Unable to walk/stand [] Unable to read [] Unable to drive [] Unable to eat/drink [] Unable to sleep [] Unable to be with family [] Patient intubated [] Other: Summary Time spent with patient
[2019-11-02 11:19] LABS: Glucose Point of Care 343 mg/dL (70-110)
--- NOTE | 2019-11-02 11:40 | P.PN_ITS ---
Subjective Subjective: Interval history: History and physical reviewed in its entirety. Patient denies any specific complaints now other than his back hurts some where he fell. Medications: Reviewed: Yes Vitals/I&O/Wt Last Vital Signs Temp 98.5 F 11/02/19 11:02 Pulse 90 11/02/19 11:02 Resp 18 11/02/19 11:02 BP 159/75 11/02/19 11:02 Pulse Ox 99 11/02/19 11:02 11/01/19 11/02/19 11/02/19 22:59 06:59 14:59 Intake Total / 240 / 240 Balance 2025. / 240 / 240 Weight last 48 hrs Weight 74.843 kg Physical Exam Narrative: EXAM NARRATIVE: General exam no apparent distress, conversive, alert and oriented x2. He was able to tell me the month, and year but was not sure what hospital this was. Cardiovascular regular rate and rhythm without murmur Lungs clear Abdomen is soft with positive bowel sounds Extremities no cyanosis clubbing. Trace edema present Neurologic: No obvious focal deficits Data : 11/02/19 04:52 11/02/19 04:52 Micro: Microbiology 11/01/19 18:24 Blood Culture - Preliminary Blood SPECIMEN COLLECTED 11/01/19 18:33 Blood Culture - Preliminary Blood SPECIMEN COLLECTED A&P Assessment and plan (1) Acute renal failure: Resolved Secondary to mild rhabdo continue fluids until tomorrow Status: Acute Qualifiers: Acute renal failure type: unspecified Qualified Code(s): N17.9 - Acute kidney failure, unspecified Code(s): N17.9 - Acute kidney failure, unspecified (2) Recurrent falls: Etiology uncertain. This could be related to his dementia, but cannot rule out medications playing a role as he is on many sedative medications. TSH, folate, B12 checked and normal Status: Acute Code(s): R29.6 - Repeated falls (3) Altered mental status: He is already been tested for TSH, B12, CT head and no reversible causes of dementia are noted. Certainly some of his confusion could be related to sedative medicines he is on as well. Likely has an element of dementia although delirium superimposed is possible Await echocardiogram, carotid duplex Status: Acute Qualifiers: Altered mental status type: unspecified Qualified Code(s): R41.82 - Altered mental status, unspecified Code(s): R41.82 - Altered mental status, unspecified (4) Diabetes mellitus type 2, noninsulin dependent: Very poor control with elevated hemoglobin A1c. Question his compliance. Initiate Lantus. Continue sliding scale. Status: Acute Code(s): E11.9 - Type 2 diabetes mellitus without complications (5) Chronic pain: Doses of baclofen, gabapentin, and hydrocodone have been reduced. If it is not apparent that he is using the baclofen I will discontinue this altogether and possibly continue to reduce doses as tolerated. Status: Acute Qualifiers: Chronic pain type: chronic pain syndrome Qualified Code(s): G89.4 - Chronic pain syndrome Code(s): G89.29 - Other chronic pain (6) Hypertension: Elevated. Add amlodipine 5 mg daily. Diuretics were discontinued secondary to renal failure. DOM inhibitor discontinued secondary to renal failure Status: Acute Qualifiers: Hypertension type: essential hypertension Qualified Code(s): I10 - Essential (primary) hypertension Code(s): I10 - Essential (primary) hypertension (7) Hyperlipidemia: Statin held secondary to elevation in CK. This can likely be restarted as this improves. Status: Acute Qualifiers: Hyperlipidemia type: unspecified Qualified Code(s): E78.5 - Hyperlipidemia, unspecified Code(s): E78.5 - Hyperlipidemia, unspecified Additional A&P Information Mild rhabdomyolysis. Continue fluids currently. He is significantly weak. At this point he appears to need intermediate facility placement. Discharge planning will evaluate. Continue physical therapy, Occupational Therapy Lovenox for DVT prophylaxis Full code Attestations Medical Necessity Statement*: Needs continued hospitalization, for evaluation of confusion, treatment of rhabdomyolysis, etc. 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
[2019-11-02] MEDS: amlodipine 5 mg Tablet PO (12:36)
[2019-11-02 17:03] LABS: Glucose Point of Care 218 mg/dL (70-110)
[2019-11-02 21:24] LABS: Glucose Point of Care 205 mg/dL (70-110)
[2019-11-02] MEDS: insulin glargine 100 units/1 mL 10 UNIT SUBCUT (22:00)
[2019-11-02] MEDS: famotidine 20 mg Tablet PO (22:02)
[2019-11-03 04:00] VITALS: BP 183/83; PULSE 83; RESP 17; TEMP 36.8; O2SAT 97
--- NOTE | 2019-11-03 04:32 | PC.NURSE ---
Nurse notified of BP.
[2019-11-03 06:15] LABS: Basophils % 0.3 %; Eosinophils # 0.1 10^3/uL (0.0-0.8); Eosinophils % 1.9 %; Hematocrit 37.3 % (42.0-52.0); Hemoglobin 11.9 g/dL (11.7-16.6); Lymphocytes # 1.4 10^3/uL (0.8-4.8); Mean Corpuscular HGB Conc 31.9 g/dL (30.0-36.0); Mean Corpuscular Hemoglobin 29.7 pg (28.0-34.0); Mean Platelet Volume 10.9 fL (7.4-10.4); Monocytes # 0.6 10^3/uL (0.2-0.9); Monocytes % 9.8 %; Neutrophils # 4.3 10^3/uL (1.8-7.7); Neutrophils % 66.5 %; Nucleated Red Blood Cells % 0 %; Platelet Count 282 10^3/cmm (130-400); Red Blood Count 4.01 10^6/uL (4.1-5.3); Red Cell Distribution Width 12.9 % (12.1-15.1); White Blood Count 6.4 10^3/uL (4.0-10.0)
[2019-11-03 06:35] LABS: Glucose Point of Care 175 mg/dL (70-110)
[2019-11-03 06:40] LABS: Alanine Aminotransferase 19 U/L (0-41); Albumin Level 3.6 g/dL (3.5-5.2); Alkaline Phosphatase 50 IU/L (40-130); Anion Gap 19.8 (5-19); Aspartate Amino Transferase 26 U/L (0-40); Blood Urea Nitrogen 15 mg/dL (8-23); Calcium 9.3 mg/dL (8.5-10.5); Carbon Dioxide 22 mmol/L (22-29); Chloride 102 mmol/L (98-107); Creatinine Clr Calc Pharmacy 90.4465; Globulin 2.5 g/dL (1.3-4.6); Glomerular Filtration Rate 96.1 mL/min (90-130); Glucose 184 mg/dL (65-115); Osmolality Calculated 291 mOsm/kg (285-295); Potassium 3.8 mmol/L (3.5-5.1); Sodium 140 mmol/L (136-145); Total Bilirubin 0.4 mg/dL (0.15-1.2); Total Protein 6.1 g/dL (6.6-8.7)
[2019-11-03 06:41] LABS: Creatine Phosphokinase 239 U/L (39-308)
[2019-11-03 07:25] VITALS: BP 188/86; PULSE 85; RESP 16; TEMP 36.7; O2SAT 96
[2019-11-03] MEDS: sodium chloride 0.9% 1,000 ML 100 ML IV (08:15)
[2019-11-03] MEDS: gabapentin 100 mg Capsule 200 MG PO ×3 (08:19→21:05)
[2019-11-03] MEDS: folic acid 1 mg Tablet PO (08:20)
[2019-11-03] MEDS: thiamine 100 mg Tablet PO (08:21)
[2019-11-03] MEDS: amlodipine 5 mg Tablet PO ×2 (08:21→10:29)
[2019-11-03] MEDS: labetalol 200 mg Tablet PO ×2 (08:21→17:42)
--- NOTE | 2019-11-03 10:42 | PM.PN ---
Subjective Subjective: Interval history: Eze reports he is doing okay, but weak. He reports a little bit of heartburn this morning. No nausea. Nursing alerts me that he likely does not need his one-on-one anymore. He is agreeable to going to a correction secondary to weakness, falls. Medications: Reviewed: Yes Vitals/I&O/Wt Last Vital Signs Temp 98.1 F 11/03/19 07:25 Pulse 85 11/03/19 07:25 Resp 16 11/03/19 07:25 BP 188/86 11/03/19 07:25 Pulse Ox 96 11/03/19 07:25 11/02/19 11/03/19 11/03/19 22:59 06:59 14:59 Intake Total 1423.333 / 2903.333 360 / 3263.333 1280 / 1280 Output Total Balance 1423.333 / 2903.333 360 / 3263.333 1279 / 1279 Weight last 48 hrs Weight 74.843 kg Physical Exam Narrative: EXAM NARRATIVE: General exam no apparent distress, conversive, alert and oriented x3. Cardiovascular regular rate and rhythm without murmur Lungs clear Abdomen is soft with positive bowel sounds Extremities no cyanosis clubbing. Trace edema present Neurologic: No obvious focal deficits Data : 11/03/19 06:06 11/03/19 06:06 Micro: Microbiology 11/01/19 18:24 Blood Culture - Preliminary Blood NEGATIVE TO DATE 11/01/19 18:33 Blood Culture - Preliminary Blood NEGATIVE TO DATE A&P Assessment and plan (1) Acute renal failure: Resolved Status: Acute Qualifiers: Acute renal failure type: unspecified Qualified Code(s): N17.9 - Acute kidney failure, unspecified Code(s): N17.9 - Acute kidney failure, unspecified (2) Recurrent falls: Etiology uncertain. This could be related to his dementia, but cannot rule out medications playing a role as he is on many sedative medications. TSH, folate, B12 checked and normal. He has improved some with reduction of sedative medicines. Status: Acute Code(s): R29.6 - Repeated falls (3) Altered mental status: He is already been tested for TSH, B12, CT head and no reversible causes of dementia are noted. Certainly some of his confusion could be related to sedative medicines he is on as well. Likely has an element of dementia although delirium superimposed is possible Echocardiogram preserved EF, 1/4 diastolic dysfunction and carotid duplex without clinically significant flow limitations Status: Acute Qualifiers: Altered mental status type: unspecified Qualified Code(s): R41.82 - Altered mental status, unspecified Code(s): R41.82 - Altered mental status, unspecified (4) Diabetes mellitus type 2, noninsulin dependent: Orally controlled. Continue Lantus and sliding scale. Increase Lantus today. Status: Acute Code(s): E11.9 - Type 2 diabetes mellitus without complications (5) Chronic pain: Doses of baclofen, gabapentin, and hydrocodone have been reduced. Discontinue baclofen completely. It does not appear that he is using this. Status: Acute Qualifiers: Chronic pain type: chronic pain syndrome Qualified Code(s): G89.4 - Chronic pain syndrome Code(s): G89.29 - Other chronic pain (6) Hypertension: Still significantly elevated. Increase Norvasc to 10 mg daily. Diuretics were discontinued secondary to renal failure. DOM inhibitor discontinued secondary to renal failure Status: Acute Qualifiers: Hypertension type: essential hypertension Qualified Code(s): I10 - Essential (primary) hypertension Code(s): I10 - Essential (primary) hypertension (7) Hyperlipidemia: Holding statin currently secondary to recent rhabdomyolysis Status: Acute Qualifiers: Hyperlipidemia type: unspecified Qualified Code(s): E78.5 - Hyperlipidemia, unspecified Code(s): E78.5 - Hyperlipidemia, unspecified Additional A&P Information Mild rhabdomyolysis. Resolved. Can decrease fluids. He is significantly weak, deconditioned. At this point he appears to need nursing home facility placement. Discharge planning will evaluate. 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
[2019-11-03 11:12] LABS: Glucose Point of Care 230 mg/dL (70-110)
[2019-11-03 11:14] VITALS: BP 168/74; PULSE 81; RESP 16; TEMP 36.7; O2SAT 97
[2019-11-03] MEDS: famotidine 20 mg Tablet PO ×2 (11:35→17:42)
[2019-11-03 15:39] VITALS: BP 163/75; PULSE 96; RESP 16; TEMP 36.7; O2SAT 97
[2019-11-03 17:27] LABS: Glucose Point of Care 231 mg/dL (70-110)
[2019-11-03 19:16] VITALS: BP 166/74; PULSE 86; RESP 18; TEMP 36.9; O2SAT 97
[2019-11-03 20:50] LABS: Glucose Point of Care 258 mg/dL (70-110)
[2019-11-03] MEDS: insulin glargine 100 units/1 mL 15 UNIT SUBCUT (21:05)
[2019-11-03] MEDS: enoxaparin 40 mg/0.4 mL Syringe SUBCUT (23:54)
[2019-11-04] VITALS: BP 158/78; PULSE 87; RESP 18; TEMP 36.9; O2SAT 96
[2019-11-04 04:00] VITALS: BP 163/86; PULSE 84; RESP 18; TEMP 36.8; O2SAT 95
[2019-11-04 06:41] LABS: Glucose Point of Care 211 mg/dL (70-110)
[2019-11-04 07:23] VITALS: BP 188/84; PULSE 82; RESP 16; TEMP 36.7; O2SAT 99
[2019-11-04] MEDS: folic acid 1 mg Tablet PO (08:16)
[2019-11-04] MEDS: gabapentin 100 mg Capsule 200 MG PO ×3 (08:16→20:59)
[2019-11-04] MEDS: famotidine 20 mg Tablet PO ×2 (08:17→17:01)
[2019-11-04] MEDS: amlodipine 10 mg Tablet PO (08:17)
[2019-11-04] MEDS: thiamine 100 mg Tablet PO (08:17)
[2019-11-04] MEDS: labetalol 200 mg Tablet PO ×2 (08:17→17:38)
[2019-11-04] MEDS: lisinopril 10 mg Tablet PO (10:31)
[2019-11-04] MEDS: calcium carbonate 500 mg Chew Tablet 1000 MG PO (10:40)
[2019-11-04 10:53] VITALS: BP 169/78; PULSE 76; RESP 18; TEMP 36.4; O2SAT 98
--- NOTE | 2019-11-04 11:00 | P.PN_ITS ---
Subjective Subjective: Interval history: Eze reports he is doing okay. He is wondering when he will transition to halfway facility for strengthening. He reports he is weak. Medications: Reviewed: Yes Vitals/I&O/Wt Last Vital Signs Temp 97.6 F 11/04/19 10:53 Pulse 76 11/04/19 10:53 Resp 18 11/04/19 10:53 BP 169/78 11/04/19 10:53 Pulse Ox 98 11/04/19 10:53 11/03/19 11/04/19 11/04/19 22:59 06:59 14:59 Intake Total 360 / 1880 Balance 360 / 1879 Physical Exam Narrative: EXAM NARRATIVE: General exam no apparent distress, conversive, alert and oriented x3. Cardiovascular regular rate and rhythm without murmur Lungs clear Abdomen is soft with positive bowel sounds Extremities no cyanosis clubbing. Trace edema present Neurologic: No obvious focal deficits Data : 11/03/19 06:06 11/03/19 06:06 Micro: Microbiology 11/01/19 20:50 Urine Culture - Final Urine,Clean Catch A&P Assessment and plan (1) Acute renal failure: Resolved Status: Acute Qualifiers: Acute renal failure type: unspecified Qualified Code(s): N17.9 - Acute kidney failure, unspecified Code(s): N17.9 - Acute kidney failure, unspecified (2) Recurrent falls: Etiology uncertain. This could be related to his dementia, but cannot rule out medications playing a role as he is on many sedative medications. TSH, folate, B12 checked and normal. Overall improvement with limiting sedating medications. Status: Acute Code(s): R29.6 - Repeated falls (3) Altered mental status: He is already been tested for TSH, B12, CT head and no reversible causes of dementia are noted. Certainly some of his confusion could be related to sedative medicines he is on as well. Likely has an element of dementia although delirium superimposed is possible Echocardiogram preserved EF, 1/4 diastolic dysfunction and carotid duplex without clinically significant flow limitations Status: Acute Qualifiers: Altered mental status type: unspecified Qualified Code(s): R41.82 - Altered mental status, unspecified Code(s): R41.82 - Altered mental status, unspecified (4) Diabetes mellitus type 2, noninsulin dependent: Orally controlled. Continue Lantus and sliding scale. Lantus has been increased. Blood sugars overall under improved control Status: Acute Code(s): E11.9 - Type 2 diabetes mellitus without complications (5) Chronic pain: Doses of baclofen, gabapentin, and hydrocodone have been reduced. Discontinue baclofen completely. It does not appear that he is using this. Status: Acute Qualifiers: Chronic pain type: chronic pain syndrome Qualified Code(s): G89.4 - Chronic pain syndrome Code(s): G89.29 - Other chronic pain (6) Hypertension: Norvasc added yesterday Lisinopril 10 mg added back today as renal function is normal Status: Acute Qualifiers: Hypertension type: essential hypertension Qualified Code(s): I10 - Essential (primary) hypertension Code(s): I10 - Essential (primary) hypertension (7) Hyperlipidemia: Holding statin currently secondary to recent rhabdomyolysis Status: Acute Qualifiers: Hyperlipidemia type: unspecified Qualified Code(s): E78.5 - Hyperlipidemia, unspecified Code(s): E78.5 - Hyperlipidemia, unspecified Additional A&P Information Mild rhabdomyolysis. Resolved. He is significantly weak, deconditioned. At this point he appears to need halfway facility placement. Discharge planning will evaluate. Continue physical therapy, Occupational Therapy Lovenox for DVT prophylaxis Full code Attestations Medical Necessity Statement*: Needs continued hospitalization, for adjustment of medications for blood pressure pending placement at halfway facility. 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
[2019-11-04 11:20] LABS: Glucose Point of Care 293 mg/dL (70-110)
[2019-11-04 15:02] VITALS: BP 165/80; PULSE 72; RESP 16; TEMP 36.5; O2SAT 98
[2019-11-04] MEDS: HYDROcodone-acetaminophen 10-325 mg Tablet 1 TAB PO ×2 (15:32→21:03)
[2019-11-04 17:15] LABS: Glucose Point of Care 198 mg/dL (70-110)
[2019-11-04 20:46] LABS: Glucose Point of Care 263 mg/dL (70-110)
[2019-11-04 21:00] VITALS: BP 191/78; PULSE 64; RESP 20; TEMP 36.7; O2SAT 97
[2019-11-04] MEDS: insulin glargine 100 units/1 mL 15 UNIT SUBCUT (21:00)
[2019-11-05] VITALS (43 sets, daily range): BP systolic 107–200; BP diastolic 49–113; PULSE 78–128; RESP 16–32; TEMP 36.4–36.5; O2SAT 93–99
--- NOTE | 2019-11-05 00:58 | PC.NURSE ---
Pt BP 195/96 manual. Received order for hydralazine and pt refusing to allow me to administer it. After spending much time with the pt trying to educate him on the benefits of taking the medication and the risks off not taking, pt continues to refuse and his anger is escalating the more staff tries.
--- NOTE | 2019-11-05 03:16 | PC.NURSE ---
Pt refusing to leave his telemetry on. States I cant get any sleep with this thing on. When explaining the purpose of it he pulls the leads off and states that has no issues that require it. Pt refuses to allow me to replace it at this time.
[2019-11-05] MEDS: haloperidol inj 5 mg/mL INJ 1 mL 2 MG IM ×2 (08:02→11:13)
[2019-11-05] MEDS: LORazepam 2 mg/mL INJ 1 mL 0.5 MG IVP (08:24)
--- NOTE | 2019-11-05 10:00 | PC.OT ---
OT tx attempted. Nursing requests OT tx to be withheld today as pt is displaying aggressive behaviors. Therapist to monitor pts status and try to resume services again tomorrow>
[2019-11-05] MEDS: haloperidol inj 5 mg/mL INJ 1 mL 1 MG IM (10:16)
[2019-11-05] MEDS: LORazepam 2 mg/mL INJ 1 mL 1 MG IM (10:38)
[2019-11-05] MEDS: LORazepam 2 mg/mL INJ 1 mL IM (10:54)
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
[2019-11-05] MEDS: haloperidol inj 5 mg/mL INJ 1 mL IM ×2 (13:29→16:47)
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
[2019-11-05] MEDS: ziprasidone 20 mg/mL SDV IM (14:23)
--- NOTE | 2019-11-05 15:12 | P.CONIM_ITS ---
Providers/Reason for Consult Consulting Physican/Specialty*: Zaki Echeverria MD. Psychiatry Reason for Consult*: Dementia with aggression and combativeness Attending Physician: Cesar Saini MD Primary Care Provider: Kyleigh Barrera MD Psych Consult HPI History of Present Illness Eze Kessler is a 69 year old male Eze presents today and is unable to truly participate in the interview process. At the time that I met him, he was in his bed, trying to get up, screaming, kicking, and things of that nature. At this point he has been given multiple milligrams of Haldol as well as much as 6 milligrams of Ativan. He does not seem to be relaxing or calming down, yelling, spitting, attempting to bite and things of this nature. As much as we can ascertain, he has not had psychiatric treatment in his life and apparently recently he has been having some memory problems and ultimately started being more and more at least verbally aggressive at home with his to where she reported she cannot handle it anymore, and he was brought to the hospital and she apparently may have left the home. Again, he has no contributory information at this time. PSYCHIATRIC HISTORY: As above. He reportedly has no psychiatric follow-up history, inpatient stays, etc. No psychosocial information outside of those things included by the primary team are available due to his level of dysfunction. Meds Current Medications: Current Medications Generic Name Dose Route Start Last Admin Trade Name Freq PRN Reason Stop Dose Admin Hydrocodone Bitart /Acetaminophen 1 tab 11/02/19 05:09 11/05/19 19:29 [place] 10-325 Mg PO 1 tab Q6H PRN Administration pain Amlodipine Besylat e 10 mg 11/04/19 09:00 11/05/19 10:19 Norvasc PO Not Given DAILY JOYCE Calcium Carbonate 1,000 mg 11/04/19 10:27 11/04/19 10:40 Tums PO 1,000 mg Q4H PRN Administration HEARTBURN Enoxaparin Sodium 40 mg 11/02/19 00:05 11/06/19 03:04 Lovenox SUBCUT Not Given Q24H JOYCE Famotidine 20 mg 11/03/19 11:00 11/05/19 19:29 Pepcid Tab PO 20 mg BID JOYCE Administration Folic Acid 1 mg 11/02/19 09:00 11/05/19 10:19 Folic Acid PO Not Given DAILY [facility] Gabapentin 200 mg 11/02/19 09:00 11/05/19 19:28 Neurontin PO 200 mg TID JOYCE Administration Haloperidol Lactat e 5 mg 11/05/19 13:24 11/05/19 13:29 Haldol Inj IM 5 mg Q6H PRN Administration AGITATION Hydralazine HCl 10 mg 11/05/19 09:53 11/05/19 16:02 Apresoline IVP 10 mg Q4H PRN Administration HYPERTENSION Insulin Aspart 0 unit 11/02/19 08:00 11/05/19 18:30 Novolog SUBCUT Not Given TIDWM [facility] Protocol Insulin Aspart 0 unit 11/02/19 00:05 11/05/19 21:16 Novolog SUBCUT 6 unit BEDTIME JOYCE Administration Protocol Insulin Glargine 15 unit 11/03/19 21:00 11/05/19 21:28 Lantus SUBCUT 15 unit BEDTIME JOYCE Administration Labetalol HCl 200 mg 11/02/19 09:00 11/05/19 19:28 Trandate PO 200 mg BID JOYCE Administration Lisinopril 10 mg 11/04/19 10:10 11/05/19 10:20 Prinivil PO Not Given DAILY [facility] Multivitamins/Mine rals 1 tab 11/02/19 09:00 11/05/19 07:34 Thera M Plus PO Not Given DAILY [facility] Thiamine Mononitra te 100 mg 11/02/19 09:00 11/05/19 10:20 Vitamin B-1 PO Not Given DAILY [facility] PFSH NPU PFSH: Medical History (Updated 11/06/19 @ 14:04 by Zaki Echeverria MD) Chronic pain Baclofen, gabapentin, hydrocodone on 11/02 2019 Diabetes mellitus type 2, noninsulin dependent Chronically on glipizide, metformin and Januvia as of 11/02/2019 Hyperlipidemia Chronically on pravastatin as of 11/02/2019 Hypertension Chronically on hydrochlorothiazide, labetalol, quinapril as of 11/02/2019 Surgical History (Updated 11/02/19 @ 04:10 by Silvia Adames MD) No significant past surgical history None reported by patient on 11/02/2019 Family History (Updated 11/02/19 @ 04:11 by Silvia Adames MD) Unknown No significant family history none reported by patient Social History (Updated 11/02/19 @ 04:12 by Silvia Adames MD) Smoking and tobacco status: former smoker Alcohol intake: former Former alcohol use details: no alcohol in 4-5 years, unable to quantify prior use History of recent travel: No Mental Status Exam MSE Comments: This is a well-nourished, well-developed, elderly, white male, with a diaper on and limited grooming, and no eye contact. No abnormal movements except for extreme psychomotor agitation. Uncooperative with exam in no moderate distress. Speech was occasional yelling, asking people to leave him alone, not touch him, and things of that nature. Mood not answered but affect aggressive. Thought process, disorganized. Thought content: patient did not respond to the questions directly, but was not expressing self-aggressive behavior, but was having outwardly directed aggression. He did not endorse any delusions, but he did appear to have persecutory and paranoid thinking. He did not appear to be attending to internal stimuli. He was alert and oriented to self. Attention and concentration were impaired, and memory was unreliable, but none were formally tested. He is alert and oriented to self. Insight and judgment are impaired. Impulse control is impaired Vitals/I&O/Wt Last Vital Signs Temp 97.7 F 11/05/19 08:00 Pulse 88 11/06/19 05:45 Resp 17 11/06/19 05:45 BP 182/88 11/06/19 05:45 Pulse Ox 97 11/06/19 04:15 11/05/19 11/05/19 11/06/19 14:59 22:59 06:59 Intake Total 222 / 222 222 / 444 Output Total 300 / 300 101 / 401 Balance -78 / -78 121 / 43 A&P Assessment and plan (1) Acute renal failure: This is a 69 year old, white male, who presents with acute aggression likely secondary to delirium with recent increase erection related to likely neurodegenerative disease/dementia, who presents not responding well to the current interventions to help him calm down. RECOMMENDATION AND PLAN: Continue current medication except: Discontinue benzodiazepines at this point. Initiate Haldol 5 mg po q 6 hours prn, max 15 mg in a 24-hour period. Will start Risperdal 0.5 mg po bid. Will return tomorrow to see if he is improving. Status: Acute Qualifiers: Acute renal failure type: unspecified Qualified Code(s): N17.9 - Acute kidney failure, unspecified Code(s): N17.9 - Acute kidney failure, unspecified (2) Recurrent falls: Status: Acute Code(s): R29.6 - Repeated falls (3) Diabetes mellitus type 2, noninsulin dependent: Status: Acute Code(s): E11.9 - Type 2 diabetes mellitus without complications (4) Chronic pain: Status: Acute Qualifiers: Chronic pain type: chronic pain syndrome Qualified Code(s): G89.4 - Chr onic pain syndrome Code(s): G89.29 - Other chronic pain (5) Hypertension: Status: Acute Qualifiers: Hypertension type: essential hypertension Qualified Code(s): I10 - Essential (primary) hypertension Code(s): I10 - Essential (primary) hypertension (6) Altered mental status: Status: Acute Qualifiers: Altered mental status type: unspecified Qualified Code(s): R41.82 - Altered mental status, unspecified Code(s): R41.82 - Altered mental status, unspecified (7) Hyperlipidemia: Status: Acute Qualifiers: Hyperlipidemia type: unspecified Qualified Code(s): E78.5 - Hyperlipidemia, unspecified Code(s): E78.5 - Hyperlipidemia, unspecified (8) Delirium: Status: Acute Code(s): R41.0 - Disorientation, unspecified (9) Dementia: Status: Acute Code(s): F03.90 - Unspecified dementia without behavioral disturbance Attestations NPU Medical Necessity Statement*: Inpatient hospitalization is medically necessary and the clinically appropriate intervention at this time. We will monitor medications and adjust if indicated. He will likely need two to four days of recovery time. Please refer to the primary team note for inpatient hospitalization. Coding Level of Care Code Acute Vault Cashier for [facility] Diagnoses Acute renal failure N17.9 Acute renal failure type: unspecified Recurrent falls R29.6 Diabetes mellitus type 2, noninsulin dependent E11.9 Chronic pain G89.4 Chronic pain type: chronic pain syndrome Hypertension I10 Hypertension type: essential hypertension Altered mental status R41.82 Altered mental status type: unspecified Hyperlipidemia E78.5 Hyperlipidemia type: unspecified Delirium R41.0 Dementia F03.90
--- NOTE | 2019-11-05 15:27 | PC.NURSE ---
AGGRESSIVE GEODON WAS GIVEN ORDERED. HE WAS VIOLENT AND AGGRESIVE PULLING AT CORDS AND SWINGING AT STAFF. FELL ASLEEP AT 1430 SLEEP CALMLY UNTIL 1520 BECAME COMBATIVE PULLING OFF PULSE OX AND HEART MONITOR AND VERBAL ABUSIVE AND SWINGING AT PATIENTS. CELIAW, SCRIPT SUPERVISOR
[2019-11-05] MEDS: morphine 4 mg/mL SDV 1 mL 1 MG IVP (15:41)
--- NOTE | 2019-11-05 15:41 | PC.NURSE ---
COMBATIVE pATIENT IS CONTINUING TO BE COMBATIVE, REMOVING TELE AND CONT. PULSE OX. PULLING AT IV, HITTING STAFF AND SCREAMING AND THREATENING STAFF. HE CONTINUES TO HIT WHEN STAFF IS CLOSE. GAVE [address] chiu. Asked if we could get patient sent to \icu for closer evaluation and physician states he is ok with patient being on floor. CELIAW, RESEARCH ASSOCIATE QUALITY CONTROL QC
[2019-11-05] MEDS: hyDRALAzine 20 mg/mL INJ 1 mL 10 MG IVP (16:02)
--- NOTE | 2019-11-05 16:17 | PC.NURSE ---
Patient is still combative and has continued to pull off all tele and pulse ox again. He had a BP of 200/102 and was treated with IV Hydralizine. He is continuing to kick myself and the staff at bedside. He is unsteady and very confused. He continues to state that if he had a shotgun he would take care of us all. Continuing to keep patient in the bed with 5 staff members present. No new orders. Dr. Saini and Dr. Echeverria notified. and no new orders. Gave meds as ordered on OCT. MIGUEL, LUCIANO
--- NOTE | 2019-11-05 16:37 | PC.NURSE ---
Physician is at bedside - Dr. Echeverria. Gave VO give 5mg of Haldol one time. CELIAW, VOICE NETWORK ADMINISTRATOR
--- NOTE | 2019-11-05 16:50 | ECG_ITS ---
Measurements Intervals Davis Rate: 120 P: 59 PA: 139 QRS: -69 QRSD: 95 T: 57 QT: 354 QTc: 501 SINUS TACHYCARDIA LEFT ANTERIOR FASCICULAR BLOCK [QRS AXIS <= -45, QR IN I, RS IN II] SEPTAL MYOCARDIAL INFARCTION [40+ ms Q WAVE IN V1/V2], PROBABLY OLD Compared to ECG 11/02/2019 01:10:23 Left anterior fascicular block now present Myocardial infarct finding now present Sinus rhythm no longer present Left-axis deviation no longer present T-wave abnormality no longer present Electronically Signed On 11-06-2019 18:21:17 CDT by Desire Manuel M.D. [email or web address]
[2019-11-05 17:09] LABS: Basophils % 0.3 %; Eosinophils # 0.1 10^3/uL (0.0-0.8); Eosinophils % 1.4 %; Hematocrit 42.1 % (42.0-52.0); Lymphocytes # 1.5 10^3/uL (0.8-4.8); Lymphocytes % 22.5 %; Mean Corpuscular HGB Conc 33.3 g/dL (30.0-36.0); Mean Corpuscular Hemoglobin 30.1 pg (28.0-34.0); Mean Corpuscular Volume 90.5 fL (80-94); Mean Platelet Volume 10.4 fL (7.4-10.4); Monocytes # 0.7 10^3/uL (0.2-0.9); Monocytes % 10.5 %; Neutrophils # 4.3 10^3/uL (1.8-7.7); Neutrophils % 64.8 %; Nucleated Red Blood Cells % 0 %; Platelet Count 331 10^3/cmm (130-400); Red Blood Count 4.65 10^6/uL (4.1-5.3); Red Cell Distribution Width 12.5 % (12.1-15.1); White Blood Count 6.6 10^3/uL (4.0-10.0)
[2019-11-05 17:22] LABS: Anion Gap 25.3 (5-19); Blood Urea Nitrogen 13 mg/dL (8-23); Calcium 10.1 mg/dL (8.5-10.5); Carbon Dioxide 19 mmol/L (22-29); Chloride 98 mmol/L (98-107); Creatinine Clr Calc Pharmacy 90.4465; Glomerular Filtration Rate 112.1 mL/min (90-130); Glucose 210 mg/dL (65-115); Osmolality Calculated 290 mOsm/kg (285-295); Potassium 3.3 mmol/L (3.5-5.1); Sodium 139 mmol/L (136-145)
[2019-11-05 17:25] LABS: Ammonia 22 umol/L (16-60)
--- NOTE | 2019-11-05 18:24 | PC.NURSE ---
Spouse Notified 1600 Spouse notified - Wendy [phone]. CELIAW, PARTY PLAN SALES UNIT SALES LEADER
--- NOTE | 2019-11-05 18:24 | PC.NURSE ---
Report called to SHARAD DE LEON RN ICU-8. SMW, NEWSWRITER
--- NOTE | 2019-11-05 18:26 | PC.NURSE ---
Spouse Notified Contacted Wendy (spouse) of transfer to ICU-8. CELIAW, LUCIANO
--- NOTE | 2019-11-05 19:24 | PC.NURSE ---
rcvd bedside report pt resting calm c eyes closed. vss per cm. no s/s of distress noted. pt verbal but disoriented . 192 pt requesting food and a drink. agrees to take hs meds at this time. pt continues to be disoriented asking for brittney and mom. vss per cm. Jana Selby
[2019-11-05] MEDS: labetalol 200 mg Tablet PO (19:28)
[2019-11-05] MEDS: gabapentin 100 mg Capsule 200 MG PO (19:28)
[2019-11-05] MEDS: famotidine 20 mg Tablet PO (19:29)
[2019-11-05] MEDS: HYDROcodone-acetaminophen 10-325 mg Tablet 1 TAB PO (19:29)
[2019-11-05] MEDS: insulin glargine 100 units/1 mL 15 UNIT SUBCUT (21:28)
[2019-11-06] VITALS (28 sets, daily range): BP systolic 138–200; BP diastolic 64–101; PULSE 64–102; RESP 15–24; TEMP 36.7–36.8; O2SAT 96–99
[2019-11-06 05:25] LABS: Basophils % 0.2 %; Eosinophils # 0.2 10^3/uL (0.0-0.8); Eosinophils % 2.9 %; Hematocrit 40.1 % (42.0-52.0); Hemoglobin 13.2 g/dL (11.7-16.6); Lymphocytes # 1.5 10^3/uL (0.8-4.8); Lymphocytes % 25.8 %; Mean Corpuscular HGB Conc 32.9 g/dL (30.0-36.0); Mean Corpuscular Hemoglobin 30.1 pg (28.0-34.0); Mean Corpuscular Volume 91.3 fL (80-94); Mean Platelet Volume 10.5 fL (7.4-10.4); Monocytes # 0.7 10^3/uL (0.2-0.9); Monocytes % 11.2 %; Neutrophils # 3.6 10^3/uL (1.8-7.7); Neutrophils % 59.6 %; Nucleated Red Blood Cells % 0 %; Platelet Count 356 10^3/cmm (130-400); Red Blood Count 4.39 10^6/uL (4.1-5.3); Red Cell Distribution Width 12.7 % (12.1-15.1)
[2019-11-06 05:51] LABS: Anion Gap 22.5 (5-19); Blood Urea Nitrogen 15 mg/dL (8-23); Calcium 9.6 mg/dL (8.5-10.5); Carbon Dioxide 21 mmol/L (22-29); Chloride 99 mmol/L (98-107); Creatinine Clr Calc Pharmacy 90.4465; Glomerular Filtration Rate 96.1 mL/min (90-130); Glucose 199 mg/dL (65-115); Osmolality Calculated 290 mOsm/kg (285-295); Potassium 3.5 mmol/L (3.5-5.1); Sodium 139 mmol/L (136-145)
--- NOTE | 2019-11-06 06:22 | PC.NURSE ---
summary of care. pt has been confused at times earlier in the shift but has been cooperative . pt concerned about brittney not getting to see him and not wanting to talk to him. pt had refused meds yesterday but agrees to take am meds. ward.
[2019-11-06 07:06] LABS: Glucose Point of Care 376 mg/dL (70-110)
[2019-11-06 07:11] LABS: Glucose Point of Care 187 mg/dL (70-110)
[2019-11-06] MEDS: amlodipine 10 mg Tablet PO (07:33)
[2019-11-06] MEDS: thiamine 100 mg Tablet PO (07:33)
[2019-11-06] MEDS: gabapentin 100 mg Capsule 200 MG PO ×3 (07:33→21:31)
[2019-11-06] MEDS: folic acid 1 mg Tablet PO (07:34)
[2019-11-06] MEDS: lisinopril 10 mg Tablet PO (07:34)
[2019-11-06] MEDS: famotidine 20 mg Tablet PO ×2 (07:40→17:07)
[2019-11-06] MEDS: labetalol 200 mg Tablet PO ×2 (07:41→17:07)
--- NOTE | 2019-11-06 07:43 | PC.NURSE ---
Received patient awake and alert, cooperative with care. Anxious for spouse Wendy to call and makes staff reassure that if she does not call by 1000 that we will call her. BP noted to be high and scheduled am meds given at this time
[2019-11-06] MEDS: HYDROcodone-acetaminophen 10-325 mg Tablet 1 TAB PO ×3 (10:00→21:31)
--- NOTE | 2019-11-06 10:40 | P.PN_ITS ---
Subjective Subjective: Interval history: Eze is much more calm this morning. Not agitated, however still disgruntled. Medications: Reviewed: Yes Vitals/I&O/Wt Last Vital Signs Temp 98.0 F 11/06/19 07:45 Pulse 84 11/06/19 09:16 Resp 18 11/06/19 09:16 BP 169/74 11/06/19 09:16 Pulse Ox 97 11/06/19 04:15 11/05/19 11/06/19 11/06/19 22:59 06:59 14:59 Intake Total 222 / 222 222 / 444 360 / 360 Output Total 300 / 300 701 / 1001 Balance -78 / -78 -479 / -557 360 / 360 Physical Exam Narrative: EXAM NARRATIVE: GEN: Awake, alert and oriented, no acute distress CVS: S1S2 N RS: CTA B/L Abd: Soft, nt/nd , bs+ CUT FILE CLERK: no focal neuro deficits Data : 11/06/19 04:59 11/06/19 04:59 A&P Assessment and plan (1) Acute renal failure: Resolved. Status: Acute Qualifiers: Acute renal failure type: unspecified Qualified Code(s): N17.9 - Acute kidney failure, unspecified Code(s): N17.9 - Acute kidney failure, unspecified (2) Recurrent falls: Etiology uncertain. This could be related to his dementia, but cannot rule out medications playing a role as he is on many sedative medications. TSH, folate, B12 checked and normal. Overall improvement with limiting sedating medications. Status: Acute Code(s): R29.6 - Repeated falls (3) Altered mental status: He is already been tested for TSH, B12, CT head and no reversible causes of dementia are noted. Certainly some of his confusion could be related to sedative medicines he is on as well. Risperdione started today. More calm. Psychiatry has been consulted 96-hour hold has been placed He has had approximately 5 mg of Haldol, 6 mg of Ativan at this point. Will p lace a continuous pulse ox. Try to discontinue restraints as soon as possible. One-on-one sitter present. Vital signs stable. Awaiting psych recommendations Status: Acute Qualifiers: Altered mental status type: unspecified Qualified Code(s): R41.82 - Altered mental status, unspecified Code(s): R41.82 - Altered mental status, unspecified (4) Diabetes mellitus type 2, noninsulin dependent: Orally controlled. Continue Lantus and sliding scale. Lantus has been increased. Blood sugars overall under improved control Status: Acute Code(s): E11.9 - Type 2 diabetes mellitus without complications (5) Chronic pain: Doses of baclofen, gabapentin, and hydrocodone have been reduced. Discontinue baclofen completely. It does not appear that he is using this. Status: Acute Qualifiers: Chronic pain type: chronic pain syndrome Qualified Code(s): G89.4 - Chronic pain syndrome Code(s): G89.29 - Other chronic pain (6) Hypertension: Norvasc added yesterday Lisinopril 10 mg added back today as renal function is normal Status: Acute Qualifiers: Hypertension type: essential hypertension Qualified Code(s): I10 - Essential (primary) hypertension Code(s): I10 - Essential (primary) hypertension (7) Hyperlipidemia: Holding statin currently secondary to recent rhabdomyolysis Status: Acute Qualifiers: Hyperlipidemia type: unspecified Qualified Code(s): E78.5 - Hyperlipidemia, unspecified Code(s): E78.5 - Hyperlipidemia, unspecified Additional A&P Information Mild rhabdomyolysis. Resolved. He is significantly weak, deconditioned. At this point he appears to need penitentiary facility placement. Continue physical therapy, Occupational Therapy Lovenox for DVT prophylaxis Full code Attestations Medical Necessity Statement*: awaiting optimization of mental status prior to discharge Coding Level of Care Code Acute Wind Turbine Service Technician for [facility] Diagnoses Acute renal failure N17.9 Acute renal failure type: unspecified Recurrent falls R29.6 Altered mental status R41.82 Altered mental status type: unspecified Diabetes mellitus type 2, noninsulin dependent E11.9 Chronic pain G89.4 Chronic pain type: chronic pain syndrome Hypertension I10 Hypertension type: essential hypertension Hyperlipidemia E78.5 Hyperlipidemia type: unspecified
--- NOTE | 2019-11-06 11:49 | P.PN_ITS ---
Subjective NPU Subjective: Interval history: Eze presents today totally different than his presentation yesterday. The nurses report that there is some occasional irritability and raising up his voice, but no combativeness. He was pleasant, had his eyes open, allowed the nurse to give him his 8 units of insulin at that moment, was inquiring about the last dosing of insulin that he had, and how many units that was, and interacting in his care in a totally appropriate manner. His discussion about yesterday was that it was a rough day and he really was not sure why things got as bad as they were. We discussed the fact that it was my belief that he started out having some clear symptoms arising from his dementia and possible poor diabetic control, but that it was exacerbated by our use of benzodiazepines and that he seemed to have a bad reaction to them, which is not uncommon for somebody his age. We discussed the Risperdal being on board, which likely is helpful and that we would continue to monitor him and see how he responds to that medication. He discussed his and how she lives in two places, did not really want to get into the reports of him being more aggressive, but we agreed that we were happy that he was doing well and that I would check back in with him tomorrow. Mental Status Exam MSE Comments: This is a well-nourished, well-developed, elderly, white male, with limited dress and grooming and improved eye contact. No abnormal movements except for mild psychomotor retardation. Cooperative with exam in no acute distress. Speech was decreased rate and volume with significant sub and draw. Mood described as better than yesterday; affect congruent. Thought process, organized. Thought content: patient denied any suicidal or homicidal ideation, there were no delusions reported or noted, patient denied any auditory or visual hallucinations. Attention and concentration have greatly improved. Memory appeared reliable but none were formally tested. Alert and oriented times three. Insight and judgment are fair. Vitals/I&O/Wt Last Vital Signs Temperature 98.0, pulse 82, respirations 19, pulse ox 99%, blood pressure 190/101. 11/06/19 11/07/19 11/07/19 22:59 06:59 14:59 Intake Total 360 / 1080 Output Total 300 / 800 Balance 60 / 280 Home Medications Prosvent Ultra Blend 1 tab PO BID 11/01/19 [History Confirmed 11/01/19] baclofen 20 mg PO TID PRN 11/01/19 [History Confirmed 11/01/19] gabapentin 400 mg PO TID 11/01/19 [History Confirmed 11/01/19] glipizide 10 mg PO BID 11/01/19 [History Confirmed 11/01/19] hydrochlorothiazide 25 mg PO DAILY 11/01/19 [History Confirmed 11/01/19] hydrocodone-acetaminophen [[place]] See Rx Instructions .ROUTE .COMPLEX 11/01/19 [History Confirmed 11/01/19] labetalol 300 mg PO BID 11/01/19 [History Confirmed 11/01/19] metformin 1,000 mg PO BID 11/01/19 [History Confirmed 11/01/19] pravastatin 80 mg PO BEDTIME 11/01/19 [History Confirmed 11/01/19] quinapril 40 mg PO DAILY 11/01/19 [History Confirmed 11/01/19] sitagliptin [Januvia] 50 mg PO DAILY 11/01/19 [History Confirmed 11/01/19] Active Medications Acetaminophen (Tylenol) 650 mg PO Q6H PRN PRN Reason: Mild/Mod Pain Or Temp >/= 101 Hydrocodone Bitart/Acetaminophen ([place] 10-325 Mg) 1 tab PO Q6H PRN PRN Reason: pain Last Admin: 11/06/19 21:31 Dose: 1 tab Documented by: Amlodipine Besylate (Norvasc) 10 mg PO DAILY [facility] Last Admin: 11/06/19 07:33 Dose: 10 mg Documented by: Calcium Carbonate (Tums) 1,000 mg PO Q4H PRN PRN Reason: HEARTBURN Last Admin: 11/04/19 10:40 Dose: 1,000 mg Documented by: Dextrose (D50w) 25 ml IVP ONCE PRN; Protocol PRN Reason: hypoglycemia protocol Dextrose (D50w) 50 ml IVP PRN PRN; Protocol PRN Reason: hypoglycemia protocol Enoxaparin Sodium (Lovenox) 40 mg SUBCUT Q24H [facility] Last Admin: 11/06/19 23:45 Dose: 40 mg Documented by: Famotidine (Pepcid Tab) 20 mg PO BID [facility] Last Admin: 11/06/19 17:07 Dose: 20 mg Documented by: Folic Acid (Folic Acid) 1 mg PO DAILY [facility] Last Admin: 11/06/19 07:34 Dose: 1 mg Documented by: Gabapentin (Neurontin) 200 mg PO TID [facility] Last Admin: 11/06/19 21:31 Dose: 200 mg Documented by: Glucagon (Glucagen) 1 mg IM ONCE PRN; Protocol PRN Reason: Adult Acute Hypoglycemia Prot. Haloperidol Lactate (Haldol Inj) 5 mg IM Q6H PRN PRN Reason: AGITATION Last Admin: 11/05/19 13:29 Dose: 5 mg Documented by: Hydralazine HCl (Apresoline) 10 mg IVP Q4H PRN PRN Reason: HYPERTENSION Last Admin: 11/05/19 16:02 Dose: 10 mg Documented by: Dextrose (D5w) 500 mls @ 100 mls/hr IV ONCE PRN; Protocol PRN Reason: Adult Acute Hypoglycemia Prot Insulin Aspart (Novolog) 0 unit SUBCUT TIDWM [facility]; Protocol Last Admin: 11/06/19 17:06 Dose: 4 unit Documented by: Insulin Aspart (Novolog) 0 unit SUBCUT BEDTIME [facility]; Protocol Last Admin: 11/06/19 21:31 Dose: 3 unit Documented by: Insulin Glargine (Lantus) 15 unit SUBCUT BEDTIME [facility] Last Admin: 11/06/19 21:31 Dose: 15 unit Documented by: Labetalol HCl (Trandate) 200 mg PO BID [facility] Last Admin: 11/06/19 17:07 Dose: 200 mg Documented by: Labetalol HCl (Trandate) 40 mg IVP Q2H PRN PRN Reason: HYPERTENSION Lisinopril (Prinivil) 10 mg PO DAILY [facility] Last Admin: 11/06/19 07:34 Dose: 10 mg Documented by: Morphine Sulfate (Morphine) 1 mg IVP Q2H PRN PRN Reason: SEVERE PAIN Multivitamins/Minerals (Thera M Plus) 1 tab PO DAILY [facility] Last Admin: 11/06/19 07:33 Dose: 1 tab Documented by: Naloxone HCl (Narcan) 0.4 mg IVP PRN PRN PRN Reason: RESPIRATORY RATE < 8/MIN Ondansetron HCl (Zofran) 4 mg IVP Q6H PRN PRN Reason: NAUSEA AND VOMITING Risperidone (Risperdal M-Tab) 0.5 mg PO BID [facility] Last Admin: 11/06/19 17:07 Dose: 0.5 mg Documented by: Thiamine Mononitrate (Vitamin B-1) 100 mg PO DAILY JOYCE Last Admin: 11/06/19 07:33 Dose: 100 mg Documented by: Data NPU : 11/06/19 04:59 11/06/19 04:59 Micro: Microbiology 11/01/19 18:24 Blood Culture - Final Blood NO GROWTH AFTER 5 DAYS 11/01/19 18:33 Blood Culture - Final Blood NO GROWTH AFTER 5 DAYS Microbiology 11/01/19 18:24 Blood Blood Culture - Final NO GROWTH AFTER 5 DAYS 11/01/19 18:33 Blood Blood Culture - Final NO GROWTH AFTER 5 DAYS A&P Assessment and plan (1) Delirium: Status: Acute (2) Dementia: Status: Acute (3) Acute renal failure: Status: Acute Qualifiers: Acute renal failure type: unspecified Qualified Code(s): N17.9 - Acute kidney failure, unspecified (4) Altered mental status: Status: Acute Qualifiers: Altered mental status type: unspecified Qualified Code(s): R41.82 - Altered mental status, unspecified Additional A&P Information This is a 69 year old, white male, who presents with acute aggression likely secondary to delirium with recent increase erection related to likely neurodegenerative disease/dementia, who presents not responding well to the current interventions to help him calm down. RECOMMENDATION AND PLAN: Continue current medication except: Decrease Haldol 5 mg po to q 8 hours prn, max 15 mg in a 24-hour period. Will return tomorrow to see if he is improving and attempt to identify level of dementia that is present. Attestations NPU Medical Necessity Statement*: N/A. Refer to primary team note for inpatient medical necessity. Coding Level of Care Code Acute Building Surveyor for [facility] Diagnoses Delirium R41.0 Dementia F03.90 Acute renal failure N17.9 Acute renal failure type: unspecified Altered mental status R41.82 Altered mental status type: unspecified
--- NOTE | 2019-11-06 12:37 | PC.SOCIAL ---
IMM Not Updated Patient currently in ICU on 96hr hold with psych eval pending. Unable to contact .
[2019-11-06 20:49] LABS: Glucose Point of Care 277 mg/dL (70-110)
[2019-11-06 20:49] LABS: Glucose Point of Care 201 mg/dL (70-110)
[2019-11-06 21:27] LABS: Glucose Point of Care 251 mg/dL (70-110)
[2019-11-06] MEDS: insulin glargine 100 units/1 mL 15 UNIT SUBCUT (21:31)
[2019-11-06] MEDS: enoxaparin 40 mg/0.4 mL Syringe SUBCUT (23:45)
[2019-11-07] VITALS (12 sets, daily range): BP systolic 152–198; BP diastolic 71–94; PULSE 64–99; RESP 15–22; TEMP 36.6–37.1; O2SAT 95–99
[2019-11-07 07:43] LABS: Glucose Point of Care 216 mg/dL (70-110)
[2019-11-07] MEDS: amlodipine 10 mg Tablet PO (08:07)
[2019-11-07] MEDS: labetalol 200 mg Tablet PO ×2 (08:08→17:38)
[2019-11-07] MEDS: lisinopril 10 mg Tablet PO (08:08)
[2019-11-07] MEDS: thiamine 100 mg Tablet PO (08:09)
[2019-11-07] MEDS: folic acid 1 mg Tablet PO (08:09)
[2019-11-07] MEDS: gabapentin 100 mg Capsule 200 MG PO ×3 (08:09→21:14)
[2019-11-07] MEDS: HYDROcodone-acetaminophen 10-325 mg Tablet 1 TAB PO ×3 (08:09→20:02)
[2019-11-07] MEDS: famotidine 20 mg Tablet PO ×2 (08:09→17:38)
[2019-11-07 11:19] LABS: Glucose Point of Care 267 mg/dL (70-110)
[2019-11-07 16:56] LABS: Glucose Point of Care 222 mg/dL (70-110)
--- NOTE | 2019-11-07 17:11 | PM.PN ---
Subjective Subjective: Interval history: Appears to be calm today. C/o some musculoskeletal pain, upset at being on a 96 hr hold. Also upset that he unable to get opaites at home dose, however overall uch more cooperative Medications: Reviewed: Yes Vitals/I&O/Wt Last Vital Signs Temp 97.8 F 11/07/19 14:00 Pulse 86 11/07/19 14:00 Resp 19 H 11/07/19 14:00 BP 168/78 11/07/19 14:00 Pulse Ox 99 11/07/19 14:00 11/07/19 11/07/19 11/07/19 06:59 14:59 22:59 Intake Total 1080 / 1080 Output Total 1000 / 1000 Balance 80 / 80 Physical Exam Narrative: EXAM NARRATIVE: GEN: Awake, alert and oriented, no acute distress CVS: S1S2 N RS: CTA B/L Abd: Soft, nt/nd , bs+ REFRESH TECHNICIAN: no focal neuro deficits Data : 11/06/19 04:59 11/06/19 04:59 Micro: Microbiology 11/01/19 18:24 Blood Culture - Final Blood NO GROWTH AFTER 5 DAYS 11/01/19 18:33 Blood Culture - Final Blood NO GROWTH AFTER 5 DAYS A&P Assessment and plan (1) Acute renal failure: Resolved. Status: Acute Qualifiers: Acute renal failure type: unspecified Qualified Code(s): N17.9 - Acute kidney failure, unspecified (2) Recurrent falls: Etiology uncertain. This could be related to his dementia, but cannot rule out medications playing a role as he is on many sedative medications. TSH, folate, B12 checked and normal. Overall improvement with limiting sedating medications. Status: Acute (3) Altered mental status: He is already been tested for TSH, B12, CT head and no reversible causes of dementia are noted. Certainly some of his confusion could be related to sedative medicines he is on as well. Risperdione started with significant improvement in behavior. Psychiatry consult appreciated 96-hour hold has been placed, awaiting reassessment from psych perspective before lifting hold. Appears to be much more calm [facility] was discussed with the patient vs placement at SNF as we are concerned about recent h/o recurrent falls. Pt says he would like to received options and then decide. Status: Acute Qualifiers: Altered mental status type: unspecified Qualified Code(s): R41.82 - Altered mental status, unspecified (4) Diabetes mellitus type 2, noninsulin dependent: Orally controlled. Continue Lantus and sliding scale. Lantus has been increased. Blood sugars overall under improved control Status: Acute (5) Chronic pain: Doses of baclofen, gabapentin, and hydrocodone have been reduced. Discontinue baclofen completely. It does not appear that he is using this. Status: Acute Qualifiers: Chronic pain type: chronic pain syndrome Qualified Code(s): G89.4 - Chronic pain syndrome (6) Hypertension: Norvasc added yesterday Lisinopril 10 mg added back as renal function is normal Status: Acute Qualifiers: Hypertension type: essential hypertension Qualified Code(s): I10 - Essential (primary) hypertension (7) Hyperlipidemia: Holding statin currently secondary to recent rhabdomyolysis Status: Acute Qualifiers: Hyperlipidemia type: unspecified Qualified Code(s): E78.5 - Hyperlipidemia, unspecified Additional A&P Information Mild rhabdomyolysis. Resolved. He is significantly weak, deconditioned. At this point he appears to need fdc facility placement, however he is hesitant for the same. Would like to receive options for now Continue physical therapy, Occupational Therapy Lovenox for DVT prophylaxis Full code Attestations Medical Necessity Statement*: awaiting psych reassessment for behaviors and placement preference Coding Level of Care Code Acute Waiter/Waitress Take Out for [facility] Fwd Diagnoses Acute renal failure N17.9 Acute renal failure type: unspecified Recurrent falls R29.6 Altered mental status R41.82 Altered mental status type: unspecified Diabetes mellitus type 2, noninsulin dependent E11.9 Chronic pain G89.4 Chronic pain type: chronic pain syndrome Hypertension I10 Hypertension type: essential hypertension Hyperlipidemia E78.5 Hyperlipidemia type: unspecified
--- NOTE | 2019-11-07 19:05 | PC.NURSE ---
Report called to 2nd floor. Will notify us when room is prepared. Wendy notified
[2019-11-07 20:58] LABS: Glucose Point of Care 313 mg/dL (70-110)
[2019-11-07] MEDS: insulin glargine 100 units/1 mL 15 UNIT SUBCUT (21:14)
[2019-11-07] MEDS: hyDRALAzine 20 mg/mL INJ 1 mL 10 MG IVP (21:14)
--- NOTE | 2019-11-08 00:19 | PC.NURSE ---
lovenox pt stated he did not wish to take a blood thinner tonight. nurse explained benefits to pt and pt still refused.
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
[2019-11-08 02:26] VITALS: PULSE 77; O2SAT 97
[2019-11-08 04:48] VITALS: BP 170/68; PULSE 83; RESP 18; TEMP 36.4; O2SAT 97
[2019-11-08 06:59] LABS: Glucose Point of Care 241 mg/dL (70-110)
[2019-11-08] MEDS: HYDROcodone-acetaminophen 10-325 mg Tablet 1 TAB PO ×3 (07:45→20:29)
[2019-11-08 07:53] VITALS: BP 160/72; PULSE 85; RESP 16; TEMP 36.7; O2SAT 97
[2019-11-08] MEDS: amlodipine 10 mg Tablet PO (08:31)
[2019-11-08] MEDS: famotidine 20 mg Tablet PO ×2 (08:31→17:15)
[2019-11-08] MEDS: folic acid 1 mg Tablet PO (08:31)
[2019-11-08] MEDS: lisinopril 10 mg Tablet PO (08:32)
[2019-11-08] MEDS: thiamine 100 mg Tablet PO (08:32)
[2019-11-08] MEDS: labetalol 200 mg Tablet PO ×2 (08:32→17:15)
[2019-11-08] MEDS: gabapentin 100 mg Capsule 200 MG PO ×3 (08:32→20:29)
[2019-11-08 11:33] VITALS: BP 169/76; PULSE 75; RESP 18; TEMP 36.3; O2SAT 98
[2019-11-08 12:59] LABS: Glucose Point of Care 324 mg/dL (70-110)
[2019-11-08 15:40] VITALS: BP 156/75; PULSE 80; RESP 18; TEMP 36.6; O2SAT 96
[2019-11-08 17:23] LABS: Glucose Point of Care 266 mg/dL (70-110)
[2019-11-08 19:35] VITALS: BP 155/66; PULSE 78; RESP 20; TEMP 37.1; O2SAT 98
[2019-11-08 20:52] LABS: Glucose Point of Care 354 mg/dL (70-110)
[2019-11-08] MEDS: insulin glargine 100 units/1 mL 15 UNIT SUBCUT (21:16)
[2019-11-08] MEDS: acetaminophen 325 mg Tablet 650 MG PO (23:03)
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
[2019-11-09] VITALS: BP 180/64; PULSE 64; RESP 20; TEMP 36.1; O2SAT 98
[2019-11-09 04:00] VITALS: BP 164/68; PULSE 64; RESP 18; TEMP 36.4; O2SAT 98
[2019-11-09 06:40] LABS: Glucose Point of Care 251 mg/dL (70-110)
[2019-11-09 07:22] VITALS: BP 177/78; PULSE 75; RESP 16; TEMP 36.4; O2SAT 98
[2019-11-09] MEDS: lisinopril 10 mg Tablet PO (08:56)
[2019-11-09] MEDS: HYDROcodone-acetaminophen 10-325 mg Tablet 1 TAB PO (08:56)
[2019-11-09] MEDS: folic acid 1 mg Tablet PO (08:57)
[2019-11-09] MEDS: gabapentin 100 mg Capsule 200 MG PO ×2 (08:57→15:04)
[2019-11-09] MEDS: labetalol 200 mg Tablet PO (08:57)
[2019-11-09] MEDS: thiamine 100 mg Tablet PO (08:58)
[2019-11-09] MEDS: famotidine 20 mg Tablet PO (08:58)
[2019-11-09] MEDS: amlodipine 10 mg Tablet PO (08:58)
[2019-11-09] MEDS: acetaminophen 325 mg Tablet 650 MG PO (11:12)
[2019-11-09 11:17] VITALS: BP 117/68; PULSE 74; RESP 16; TEMP 36.3; O2SAT 98
[2019-11-09 11:20] LABS: Glucose Point of Care 358 mg/dL (70-110)
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
[2019-11-09 15:23] VITALS: BP 165/80; PULSE 77; RESP 16; TEMP 36.8; O2SAT 97
--- NOTE | 2019-11-09 16:25 | PC.SOCIAL ---
IMM Page 2 of IMM explained to patient. Initialed, dated, and timed and placed in chart. Copy provided to patient.
--- NOTE | 2019-11-09 16:38 | PC.PT ---
PT note; patient now doing well with transfers and ambulation with walker,has met goals of physical therapy, discharge physical therapy.
[2019-11-09 17:03] VITALS: BP 165/80; PULSE 77; RESP 16; TEMP 36.8; O2SAT 97
--- NOTE | 2019-11-12 23:15 | PM.DCS ---
Discharge Providers Date of Admission: 11/01/19 22:48 Date of Discharge: November 09, 2019 Attending Provider at Admission: Silvia Adames MD Attending Provider at Discharge: Michelle Durand MD Primary Care Provider: Kyleigh Barrera MD Diagnoses at Discharge Discharge Diagnosis (1) Altered mental status: Status: Acute Qualifiers: Altered mental status type: unspecified Qualified Code(s): R41.82 - Altered mental status, unspecified (2) Delirium: Status: Acute Reason for Visit Reason for Visit: Reason For Visit: AMS, Recurrent Falls Hospital Course Discharge Summary: Mr. Kessler is a 69 year old male who presnted to the Ed with c/o change in behavior where in he had recently become more combative in a background of having dementia. He was very aggressive initially at time of admission, psychiatry was consulted and he was started on rx with Risperidone. Patient responded well to initiation of treatment, his behavior improved significantly. he was kept under close observation. He also had multiple injusries presumably from falls at home. Ct head was negative. He also had thabdomyolysis and STEPHANIE which resolved. It was recommended that he transition to SNF for his deconditioning and recurrent falls however he declined and elected to go home with home health Physical Exam Narrative: EXAM NARRATIVE: GEN: Awake, alert and oriented, no acute distress CVS: S1S2 N RS: CTA B/L Abd: Soft, nt/nd , bs+ VEHICLE FUEL SYSTEMS CONVERTER: no focal neuro deficits Discharge Data Data Completed and Pending: Completed Studies During Hospitalization Category Date Time Status CT head wo con* 7 0450 Urgent Cat Scan 11/01/19 18:59 Completed XR chest 1V glendy ble 35014 Stat Exams 11/01/19 18:59 Completed CV carotid duplex BI* [id number] Routine Ultrasound 11/02/19 04:54 Completed CV echo complete* 19703 Routine Ultrasound 11/02/19 04:54 Completed Vitals: Last Vital Signs Temp 98.2 F 11/09/19 17:03 Pulse 77 11/09/19 17:03 Resp 16 11/09/19 17:03 BP 165/80 11/09/19 17:03 Pulse Ox 97 11/09/19 17:03 Discharge Plan Discharge Patient Disposition: Home Health Service Condition: Stable Prescriptions: New acetaminophen 325 mg Tablet 650 mg PO Q6H PRN (Reason: Mild/Mod Pain Or Temp >/= 101) Qty: 0 RF: 0 labetalol 200 mg Tablet 200 mg PO BID 30 Days Qty: 60 RF: 0 amlodipine 10 mg Tablet 10 mg PO DAILY 30 Days Qty: 30 RF: 0 calcium carbonate 200 mg calcium (500 mg) Tablet,Chewable 1,000 mg PO DAILY PRN (Reason: Heartburn) Qty: 0 RF: 0 folic acid 1 mg Tablet 1 mg PO DAILY Qty: 0 RF: 0 gabapentin 100 mg Capsule 200 mg PO TID 30 Days Qty: 180 RF: 0 risperidone 0.5 mg Tablet,Disintegrating 0.5 mg PO BID 30 Days Qty: 60 RF: 0 Thera M Plus (ferrous fumarat) 9 mg iron-400 mcg Tablet 1 tab PO DAILY Qty: 0 RF: 0 Vitamin B-1 (mononitrate) 100 mg Tablet 100 mg PO DAILY Qty: 0 RF: 0 Continued metformin 500 mg Tablet 1,000 mg PO BID RF: 0 pravastatin 40 mg Tablet 80 mg PO BEDTIME RF: 0 glipizide 10 mg Tablet Extended Release 24hr 10 mg PO BID RF: 0 quinapril 40 mg Tablet 40 mg PO DAILY RF: 0 Januvia 100 mg Tablet 50 mg PO DAILY RF: 0 Prosvent Ultra Blend 1 tab PO BID RF: 0 Discontinued gabapentin 400 mg Capsule 400 mg PO TID RF: 0 hydrocodone-acetaminophen [Retsof] 10-325 mg Tablet See Rx Instructions .ROUTE .COMPLEX RF: 0 baclofen 10 mg Tablet 20 mg PO TID PRN (Reason: Pain) RF: 0 hydrochlorothiazide 25 mg Tablet 25 mg PO DAILY RF: 0 labetalol 300 mg Tablet 300 mg PO BID RF: 0 Discharge Orders: Discharge Order (Routine); Ordered 11/09/19 Ordered By: Michelle Durand Referrals: [facility] [Outside] Kyleigh Barrera MD [Primary Care Provider] - (PLEASE CALL FOR APPOINTMENT ) Discharge Diet: Usual diet Discharge Activity: Resume usual activity Patient Instructions: Iron Supplements (By mouth), Labetalol (By mouth), Thiamine (Vitamin B-1) (By mouth), Folic Acid (By mouth), Gabapentin (By mouth), Risperidone (By mouth), Amlodipine (By mouth), Acute Kidney Injury (DC), Dementia (GEN), Acute Delirium (DC) Activity Restrictions/Additional Instructions: check blood pressure twice a day over the next week given changes in medications. Return to ER immediately in case of any repeated falls Discharge Date/Time: 11/09/19 17:04 Discharge Attestations Time Spent in Discharge Care*: greater than 30 min Specific Discharge Activities: Specific discharge activities: discussing with pcp/other providers and discussing with correctional case manager/social workers/dc planners Quality Metrics Clinical Quality Measures During this hospital stay, did patient experience: None Coding Level of Care Code Acute Junior Web Designer for Jason Loomis Diagnoses Altered mental status R41.82 Altered mental status type: unspecified Delirium R41.0
== END 2019-11-09 17:04 | disposition home health service (06) | DRG 683 ==
LOC: ER 22:50 → MEDSURG 11-02 03:10 → ICU 11-05 18:19 → MEDSURG 11-07 20:20
PROVIDERS: Internal Medicine; Psychiatry & Neurology Psychiatry; Admitting Provider Hospitalist; Emergency Provider Emergency Medicine; Family Provider General Practice; PCP Family Medicine; Visit Provider Student in an Organized Health Care Education/Training Program
DX: N17.9 Acute kidney failure, unspecified (principal); M62.82 Rhabdomyolysis; F03.91 Unspecified dementia, unspecified severity, with behavioral disturbance; Z91.81 History of falling; E11.9 Type 2 diabetes mellitus without complications; I10 Essential (primary) hypertension; Z79.84 Long term (current) use of oral hypoglycemic drugs; G89.4 Chronic pain syndrome; E78.5 Hyperlipidemia, unspecified; Z87.891 Personal history of nicotine dependence
CPT/HCPCS: 12345; 36415; 36416; 36600; 70450; 71045; 80048; 80053; 80061; 80306; 80307; 81001; 82140; 82550; 82607; 82746; 82803; 82962; 83036; 83090; 83605; 83690; 83735; 83880; 84100; 84443; 84484; 85025; 85610; 87040; 87086; 87804; 92523; 92526; 92610; 93005; 93306; 93880; 94640; 96372; 96375; 97110; 97116; 97161; 97167; 97530; 97535; 99283; J0360; J1630; J1650; J1815; J2060; J2270; J3486; J7030

== ENCOUNTER → 2020-01-04 13:45 | Outpatient (BNVA) | payer MEDICARE, SELFPAY | PROVIDERS: Family Provider General Practice; PCP Family Medicine; Visit Provider Anesthesiology Pain Medicine | DX: G89.4 Chronic pain syndrome (principal); M54.2 Cervicalgia; Z79.891 Long term (current) use of opiate analgesic | CPT/HCPCS: 99204 ==

== ENCOUNTER → 2020-02-05 10:48 | Outpatient (BNVA) | payer MEDICARE, SELFPAY | PROVIDERS: Family Provider General Practice; PCP Family Medicine; Visit Provider Anesthesiology Pain Medicine | DX: G89.4 Chronic pain syndrome (principal); M54.12 Radiculopathy, cervical region; M54.9 Dorsalgia, unspecified; Z79.891 Long term (current) use of opiate analgesic | CPT/HCPCS: 99213 ==

== ENCOUNTER → 2020-03-05 09:31 | Outpatient (BNVA) | payer MEDICARE, SELFPAY | PROVIDERS: Family Provider General Practice; PCP Family Medicine; Visit Provider Anesthesiology Pain Medicine | DX: G89.4 Chronic pain syndrome (principal); M50.90 Cervical disc disorder, unspecified, unspecified cervical region; M47.812 Spondylosis without myelopathy or radiculopathy, cervical region; M79.601 Pain in right arm; M51.17 Intervertebral disc disorders with radiculopathy, lumbosacral region; M54.9 Dorsalgia, unspecified; Z98.890 Other specified postprocedural states; Z79.891 Long term (current) use of opiate analgesic | CPT/HCPCS: 99213; 99214 ==

== ENCOUNTER → 2020-04-22 11:07 | Outpatient (BNVA) | payer MEDICARE, SELFPAY | PROVIDERS: Family Provider General Practice; PCP Internal Medicine; Visit Provider Anesthesiology Pain Medicine | DX: M50.90 Cervical disc disorder, unspecified, unspecified cervical region (principal); M54.12 Radiculopathy, cervical region; M47.812 Spondylosis without myelopathy or radiculopathy, cervical region; M54.9 Dorsalgia, unspecified; Z98.890 Other specified postprocedural states; Z79.891 Long term (current) use of opiate analgesic | CPT/HCPCS: 99213 ==

== ENCOUNTER → 2020-06-24 11:02 | Outpatient (BNVA) | payer MEDICARE, SELFPAY | PROVIDERS: Family Provider General Practice; PCP Internal Medicine; Visit Provider Anesthesiology Pain Medicine | DX: M50.90 Cervical disc disorder, unspecified, unspecified cervical region (principal); M47.812 Spondylosis without myelopathy or radiculopathy, cervical region; M54.12 Radiculopathy, cervical region; M54.9 Dorsalgia, unspecified; Z98.890 Other specified postprocedural states; Z79.891 Long term (current) use of opiate analgesic | CPT/HCPCS: 99213 ==

== ENCOUNTER → 2020-08-19 09:49 | Outpatient (BNVA) | payer MEDICARE, SELFPAY | PROVIDERS: Family Provider General Practice; PCP Internal Medicine; Visit Provider Anesthesiology Pain Medicine | DX: M50.90 Cervical disc disorder, unspecified, unspecified cervical region (principal); M54.12 Radiculopathy, cervical region; M47.812 Spondylosis without myelopathy or radiculopathy, cervical region; M79.601 Pain in right arm; M54.9 Dorsalgia, unspecified; Z79.899 Other long term (current) drug therapy; Z98.890 Other specified postprocedural states | CPT/HCPCS: 99213; 99214 ==

== ENCOUNTER → 2020-10-14 10:45 | Outpatient (BNVA) | payer MEDICARE, SELFPAY | PROVIDERS: Family Provider General Practice; PCP Internal Medicine; Visit Provider Anesthesiology Pain Medicine | DX: M50.90 Cervical disc disorder, unspecified, unspecified cervical region (principal); M54.12 Radiculopathy, cervical region; M47.812 Spondylosis without myelopathy or radiculopathy, cervical region; M79.601 Pain in right arm; M54.9 Dorsalgia, unspecified; Z98.890 Other specified postprocedural states; Z79.899 Other long term (current) drug therapy; Z79.891 Long term (current) use of opiate analgesic | CPT/HCPCS: 99213; 99214 ==

== ENCOUNTER → 2020-12-09 09:53 | Outpatient (BNVA) | payer MEDICARE, SELFPAY | PROVIDERS: Family Provider General Practice; PCP Internal Medicine; Visit Provider Anesthesiology Pain Medicine | DX: M54.9 Dorsalgia, unspecified (principal); M47.812 Spondylosis without myelopathy or radiculopathy, cervical region; M50.90 Cervical disc disorder, unspecified, unspecified cervical region; M54.12 Radiculopathy, cervical region; Z98.890 Other specified postprocedural states; Z79.899 Other long term (current) drug therapy | CPT/HCPCS: 99213; 99214 ==

== ENCOUNTER → 2021-02-11 11:06 | Outpatient (BNVA) | payer MEDICARE, SELFPAY | PROVIDERS: Family Provider General Practice; PCP Internal Medicine; Visit Provider Anesthesiology Pain Medicine | DX: G89.29 Other chronic pain (principal); M50.90 Cervical disc disorder, unspecified, unspecified cervical region; M54.12 Radiculopathy, cervical region; M47.812 Spondylosis without myelopathy or radiculopathy, cervical region; M79.601 Pain in right arm; M54.9 Dorsalgia, unspecified; Z98.890 Other specified postprocedural states; Z79.891 Long term (current) use of opiate analgesic | CPT/HCPCS: 99213; 99214 ==

== ENCOUNTER → 2021-04-08 11:13 | Outpatient (BNVA) | payer MEDICARE, SELFPAY | PROVIDERS: Family Provider General Practice; PCP Internal Medicine; Visit Provider Anesthesiology Pain Medicine | DX: G89.29 Other chronic pain (principal); M50.90 Cervical disc disorder, unspecified, unspecified cervical region; M47.812 Spondylosis without myelopathy or radiculopathy, cervical region; M51.17 Intervertebral disc disorders with radiculopathy, lumbosacral region; M79.601 Pain in right arm; Z98.890 Other specified postprocedural states; Z79.891 Long term (current) use of opiate analgesic | CPT/HCPCS: 99214 ==

== ENCOUNTER → 2021-06-03 10:24 | Outpatient (BNVA) | payer MEDICARE, SELFPAY | PROVIDERS: Family Provider General Practice; PCP Internal Medicine; Visit Provider Anesthesiology Pain Medicine | DX: G89.29 Other chronic pain (principal); M50.90 Cervical disc disorder, unspecified, unspecified cervical region; M47.812 Spondylosis without myelopathy or radiculopathy, cervical region; M79.601 Pain in right arm; Z98.890 Other specified postprocedural states; Z79.899 Other long term (current) drug therapy; Z79.891 Long term (current) use of opiate analgesic; Z87.891 Personal history of nicotine dependence | CPT/HCPCS: 99213 ==

== ENCOUNTER → 2021-07-14 11:11 | Outpatient (BNVA) | payer MEDICARE, SELFPAY | PROVIDERS: Family Provider General Practice; PCP Internal Medicine; Visit Provider Anesthesiology Pain Medicine | DX: G89.4 Chronic pain syndrome (principal); M50.90 Cervical disc disorder, unspecified, unspecified cervical region; M47.812 Spondylosis without myelopathy or radiculopathy, cervical region; M79.601 Pain in right arm; Z98.890 Other specified postprocedural states; Z79.899 Other long term (current) drug therapy; Z79.891 Long term (current) use of opiate analgesic; Z87.891 Personal history of nicotine dependence | CPT/HCPCS: 99213; 99214 ==